=== PATIENT | female | born 1975 | race American Indian/Alaskan Native ===

== ENCOUNTER 2017-11-15 16:33 | Emergency (ER) | payer SELFPAY ==
[2017-11-15 16:41] VITALS: BP 141/84
[2017-11-15] MEDS ORDERED: NORCO 5/325 PO ONE (19:21)
--- NOTE | 2017-11-15 19:25 | Emergency Department Report ---
ED Upper Extremity Inj HPI - General Chief Complaint: Extremity Injury, Upper Stated Complaint: RIGHT WRIST PAIN Time Seen by Provider: 11/15/17 19:17 Source: patient Mode of arrival: Ambulatory Limitations: No Limitations - History of Present Illness Initial Comments: Patient's 42-year-old -[place] female who presents for right wrist pain 3 days so she felt pain after lifting heavy boxes states he felt a pop now with pain swelling to right wrist pain described as 10/18/2017 exacerbated by movement there is numbness no tingling or paralysis Complaint: Injury to:: right, wrist Onset/Timin -: days(s) Other Extremity Injury: Wrist: Right Other Injuries: none Place: work Severity scale (0 -10): 4 Improves With: none Worsens With: movement of extremity Context: other (lifting ) Associated Symptoms: denies: weakness, numbness, neck pain - Related Data Home Medications Medication Instructions Recorded Confirmed Last Taken Hydrochlorothiazide [HCTZ] 12.5 mg PO QDAY 07/27/15 07/27/15 Unknown Insulin NPH/Regular [NovoLIN 70/30] 40 unit SQ QAM 07/27/15 07/31/15 Unknown Lisinopril [Zestril TAB] 40 mg PO QDAY 07/27/15 07/27/15 Unknown metFORMIN [Glucophage] 500 mg PO BID 07/27/15 07/27/15 Unknown Insulin NPH/Regular [NovoLIN 70/30] 30 unit SQ DAILY 07/31/15 07/31/15 Unknown Previous Rx's Medication Instructions Recorded Last Taken Type Aspirin EC [Aspirin Enteric Coated 325 mg PO QDAY #30 tablet 08/02/15 Unknown Rx TAB] Metoprolol [Lopressor TAB] 25 mg PO BID #60 tablet 08/02/15 Unknown Rx Prasugrel [Effient] 10 mg PO QDAY #30 tablet 08/02/15 Unknown Rx Simvastatin [Zocor TAB] 40 mg PO QHS #30 tablet 08/02/15 Unknown Rx Cyclobenzaprine [Flexeril] 10 mg PO BID PRN #20 tablet 11/15/17 Unknown Rx Menthol/Camphor [[place] 1 applic TP BID PRN #1 tube 11/15/17 Unknown Rx Ointment] Naproxen [Naprosyn] 500 mg PO BID PRN #30 tablet 06/07/18 Unknown Rx Allergies Allergy/AdvReac Type Severity Reaction Status Date / Time No Known Allergies Allergy Unverified 07/27/15 11:39 ED Review of Systems ROS: Stated complaint: RIGHT WRIST PAIN Other details as noted in HPI Constitutional: denies: chills, fever Eyes: denies: eye pain, eye discharge, vision change ENT: denies: ear pain, throat pain Respiratory: denies: cough, shortness of breath, wheezing Cardiovascular: denies: chest pain, palpitations Endocrine: no symptoms reported Gastrointestinal: denies: abdominal pain, nausea, diarrhea Genitourinary: denies: urgency, dysuria, discharge Musculoskeletal: joint swelling, myalgia Skin: denies: rash, lesions Neurological: denies: headache, weakness, paresthesias Psychiatric: as per HPI Hematological/Lymphatic: denies: easy bleeding, easy bruising ED Past Medical Hx - Past Medical History Previous Medical History?: Yes Hx Hypertension: Yes Hx Heart Attack/AMI: Yes (x 2) Hx Congestive Heart Failure: No Hx Diabetes: Yes Hx Asthma: No Hx COPD: No Additional medical history: high cholestrol - Surgical History Past Surgical History?: Yes Hx Coronary Stent: Yes (x 2) - Social History Smoking Status: Never Smoker Substance Use Type: None - Medications Home Medications: Home Medications Medication Instructions Recorded Confirmed Last Taken Type Hydrochlorothiazide [HCTZ] 12.5 mg PO QDAY 07/27/15 07/27/15 Unknown History Insulin NPH/Regular [NovoLIN 70/30] 40 unit SQ QAM 07/27/15 07/31/15 Unknown History Lisinopril [Zestril TAB] 40 mg PO QDAY 07/27/15 07/27/15 Unknown History metFORMIN [Glucophage] 500 mg PO BID 07/27/15 07/27/15 Unknown History Insulin NPH/Regular [NovoLIN 70/30] 30 unit SQ DAILY 07/31/15 07/31/15 Unknown History Aspirin EC [Aspirin Enteric Coated 325 mg PO QDAY #30 tablet 08/02/15 Unknown Rx TAB] Metoprolol [Lopressor TAB] 25 mg PO BID #60 tablet 08/02/15 Unknown Rx Prasugrel [Effient] 10 mg PO QDAY #30 tablet 08/02/15 Unknown Rx Simvastatin [Zocor TAB] 40 mg PO QHS #30 tablet 08/02/15 Unknown Rx Cyclobenzaprine [Flexeril] 10 mg PO BID PRN #20 tablet 11/15/17 Unknown Rx Menthol/Camphor [[place] 1 applic TP BID PRN #1 tube 11/15/17 Unknown Rx Ointment] Naproxen [Naprosyn] 500 mg PO BID PRN #30 tablet 11/15/17 Unknown Rx ED Physical Exam - General Limitations: No Limitations General appearance: alert, in no apparent distress - Head Head exam: Present: atraumatic, normocephalic - Eye Eye exam: Present: normal appearance - ENT ENT exam: Present: mucous membranes moist - Neck Neck exam: Present: normal inspection - Respiratory Respiratory exam: Present: normal lung sounds bilaterally. Absent: respiratory distress - Cardiovascular Cardiovascular Exam: Present: regular rate, normal rhythm. Absent: systolic murmur, diastolic murmur, rubs, gallop - GI/Abdominal GI/Abdominal exam: Present: soft, normal bowel sounds - Rectal Rectal exam: Present: deferred - Extremities Exam Extremities exam: Present: tenderness (right dorsal right wrist pain swelling ) , normal capillary refill, joint swelling - Expanded Upper Extremity Exam Right Hand Wrist exam: Present: tenderness (right lateral wrist mild swelling no snuff box tenderness flexion and extension restricted by pain ), swelling. Absent: abrasion, laceration, ecchymosis, deformity, crepidus, dislocation, erythema, amputation, nail avulsion, subungual hematoma Neuro motor exam: Present: wrist extension intact, thumb opposition intact, thumb IP flexion intact, thumb adduction intact, fingers 2-5 abduction intact Neurosensory exam: Present: 2-point discrimination, radial nerve intact, ulnar nerve intact, median nerve intact Vascular: Present: normal capillary refill, radial pulse, brachial pulse, ulnar pulse. Absent: vascular compromise, Pallo, pulse deficit radial art, pulse deficit ulnar art, pulse deficit brachial art - Back Exam Back exam: Present: normal inspection - Neurological Exam Neurological exam: Present: alert, oriented X3, CN II-XII intact, normal gait, reflexes normal. Absent: motor sensory deficit - Psychiatric Psychiatric exam: Present: normal affect, normal mood - Skin Skin exam: Present: warm, dry, intact, normal color. Absent: rash ED Course Vital Signs 11/15/17 11/15/17 16:36 19:28 Temperature 98.4 F Pulse Rate 80 Respiratory 16 18 Rate Blood Pressure 141/84 O2 Sat by Pulse 97 Oximetry ED Medical Decision Making - Radiology Data Radiology results: report reviewed, image reviewed no fracture no soft tissue abnormality - Medical Decision Making Wrist x-ray results no fracture no soft tissue abnormality. Plan right wrist Velcro splint and says muscle relaxants wrist exercises and follow with PCP in 2-3 days return to ED if symptoms worsen patient will be DC'd home in stable condition at this time patient verbalizes understanding and agreement with discharge plan. Critical care attestation.: If time is entered above; I have spent that time in minutes in the direct care of this critically ill patient, excluding procedure time. ED Disposition Clinical Impression: Wrist strain Qualifiers: Encounter type: initial encounter Laterality: right Qualified Code(s): S66.911A - Strain of unspecified muscle, fascia and tendon at wrist and hand level, right hand, initial encounter Disposition: DC-01 TO HOME OR SELFCARE Is pt being admited?: No Does the pt Need Aspirin: No Condition: Fair Instructions: Wrist Injury (ED) Prescriptions: Cyclobenzaprine [Flexeril] 10 mg PO BID PRN #20 tablet PRN Reason: Muscle Spasm Menthol/Camphor [[place] Ointment] 1 applic TP BID PRN #1 tube PRN Reason: pain spasm Naproxen [Naprosyn] 500 mg PO BID PRN #30 tablet PRN Reason: Pain Referrals: [facility] [Outside] - 3-5 Days Forms: Work/School Release Form(ED) Time of Disposition: 20:37
--- NOTE | 2017-11-15 20:53 | XRay Report ---
FINAL REPORT PROCEDURE: XR WRIST BILAT 3+V TECHNIQUE: Bilateral wrists, 4 views HISTORY: wrist pain swelling COMPARISON: No prior studies are available for comparison. FINDINGS: No acute fracture or dislocation is seen bilaterally. No focal osseous lesions. No radiopaque foreign body. No significant degenerative changes. No cortical erosions. IMPRESSION: No osseous abnormality is seen bilaterally
== END 2017-11-15 20:58 | disposition home or self-care (01) ==
LOC: ED 16:33
DX: S66.911A Strain of unspecified muscle, fascia and tendon at wrist and hand level, right hand, initial encounter (principal); I10 Essential (primary) hypertension; E11.9 Type 2 diabetes mellitus without complications; E78.5 Hyperlipidemia, unspecified; X50.9XXA Other and unspecified overexertion or strenuous movements or postures, initial encounter; Y93.89 Activity, other specified; Y92.89 Other specified places as the place of occurrence of the external cause; Y99.8 Other external cause status

== ENCOUNTER 2017-12-10 21:13 | Emergency (ER) | payer SELFPAY ==
[2017-12-10 21:39] VITALS: BP 156/81
[2017-12-11] MEDS ORDERED: ULTRAM PO ONE
--- NOTE | 2017-12-11 00:09 | Emergency Department Report ---
ED ENT HPI - General Chief complaint: Dental/Oral Stated complaint: TOOTHACHE Time Seen by Provider: 12/10/17 23:59 Source: patient Mode of arrival: Ambulatory Limitations: No Limitations - History of Present Illness Initial comments: 42-year-old -[place] female with a past medical history of diabetes comes in complaining that she has a tooth a 8 out of 10 with an abscess for 2 weeks. Patient reports that she has a bad tooth on her right lower jaw. She denies any fever or chills or nausea no vomiting. She currently takes Novolin 70/30 45 units a.m. and 30 units p.m. complaint: tooth pain -: week(s) (2) Location: tooth # (32) Severity: severe Severity scale (0 -10): 8 Quality: burning, aching Consistency: constant Improves with: none Worsens with: none Context- Dental: history of dental caries - Related Data Home Medications Medication Instructions Recorded Confirmed Last Taken Hydrochlorothiazide [HCTZ] 12.5 mg PO QDAY 07/27/15 07/27/15 Unknown Insulin NPH/Regular [NovoLIN 70/30] 40 unit SQ QAM 07/27/15 07/31/15 Unknown Lisinopril [Zestril TAB] 40 mg PO QDAY 07/27/15 07/27/15 Unknown metFORMIN [Glucophage] 500 mg PO BID 07/27/15 07/27/15 Unknown Insulin NPH/Regular [NovoLIN 70/30] 30 unit SQ DAILY 07/31/15 07/31/15 Unknown Previous Rx's Medication Instructions Recorded Last Taken Type Aspirin EC [Aspirin Enteric Coated 325 mg PO QDAY #30 tablet 08/02/15 Unknown Rx TAB] Metoprolol [Lopressor TAB] 25 mg PO BID #60 tablet 08/02/15 Unknown Rx Prasugrel [Effient] 10 mg PO QDAY #30 tablet 08/02/15 Unknown Rx Simvastatin [Zocor TAB] 40 mg PO QHS #30 tablet 08/02/15 Unknown Rx Acetaminophen [Tylenol Arthritis] 650 mg PO QID PRN #60 tablet.er 11/15/17 Unknown Rx Cyclobenzaprine [Flexeril] 10 mg PO BID PRN #20 tablet 11/15/17 Unknown Rx Menthol/Camphor [[place] 1 applic TP BID PRN #1 tube 11/15/17 Unknown Rx Ointment] Naproxen [Naprosyn] 500 mg PO BID PRN #30 tablet 11/15/17 Unknown Rx Penicillin Vk [Veetids TAB] 250 mg PO QID #40 tablet 12/11/17 Unknown Rx traMADol [Ultram 50 MG tab] 50 mg PO Q6HR PRN #15 tablet 12/11/17 Unknown Rx Allergies Allergy/AdvReac Type Severity Reaction Status Date / Time ibuprofen Allergy Unknown Verified 12/10/17 21:34 ED Dental HPI - General Chief complaint: Dental/Oral Stated complaint: TOOTHACHE Time Seen by Provider: 12/10/17 23:59 Source: patient Mode of arrival: Ambulatory Limitations: No Limitations - Related Data Home Medications Medication Instructions Recorded Confirmed Last Taken Hydrochlorothiazide [HCTZ] 12.5 mg PO QDAY 07/27/15 07/27/15 Unknown Insulin NPH/Regular [NovoLIN 70/30] 40 unit SQ QAM 07/27/15 07/31/15 Unknown Lisinopril [Zestril TAB] 40 mg PO QDAY 07/27/15 07/27/15 Unknown metFORMIN [Glucophage] 500 mg PO BID 07/27/15 07/27/15 Unknown Insulin NPH/Regular [NovoLIN 70/30] 30 unit SQ DAILY 07/31/15 07/31/15 Unknown Previous Rx's Medication Instructions Recorded Last Taken Type Aspirin EC [Aspirin Enteric Coated 325 mg PO QDAY #30 tablet 08/02/15 Unknown Rx TAB] Metoprolol [Lopressor TAB] 25 mg PO BID #60 tablet 08/02/15 Unknown Rx Prasugrel [Effient] 10 mg PO QDAY #30 tablet 08/02/15 Unknown Rx Simvastatin [Zocor TAB] 40 mg PO QHS #30 tablet 08/02/15 Unknown Rx Acetaminophen [Tylenol Arthritis] 650 mg PO QID PRN #60 tablet.er 11/15/17 Unknown Rx Cyclobenzaprine [Flexeril] 10 mg PO BID PRN #20 tablet 11/15/17 Unknown Rx Menthol/Camphor [[place] 1 applic TP BID PRN #1 tube 11/15/17 Unknown Rx Ointment] Naproxen [Naprosyn] 500 mg PO BID PRN #30 tablet 11/15/17 Unknown Rx Penicillin Vk [Veetids TAB] 250 mg PO QID #40 tablet 12/11/17 Unknown Rx traMADol [Ultram 50 MG tab] 50 mg PO Q6HR PRN #15 tablet 12/11/17 Unknown Rx Allergies Allergy/AdvReac Type Severity Reaction Status Date / Time ibuprofen Allergy Unknown Verified 12/10/17 21:34 ED Review of Systems ROS: Stated complaint: TOOTHACHE Other details as noted in HPI Comment: All other systems reviewed and negative ENT: dental pain ED Past Medical Hx - Past Medical History Hx Hypertension: Yes Hx Heart Attack/AMI: Yes (x 2) Hx Congestive Heart Failure: No Hx Diabetes: Yes Hx Asthma: No Hx COPD: No Additional medical history: high cholestrol - Surgical History Hx Coronary Stent: Yes (x 2) - Social History Smoking Status: Never Smoker Substance Use Type: None - Medications Home Medications: Home Medications Medication Instructions Recorded Confirmed Last Taken Type Hydrochlorothiazide [HCTZ] 12.5 mg PO QDAY 07/27/15 07/27/15 Unknown History Insulin NPH/Regular [NovoLIN 70/30] 40 unit SQ QAM 07/27/15 07/31/15 Unknown History Lisinopril [Zestril TAB] 40 mg PO QDAY 07/27/15 07/27/15 Unknown History metFORMIN [Glucophage] 500 mg PO BID 07/27/15 07/27/15 Unknown History Insulin NPH/Regular [NovoLIN 70/30] 30 unit SQ DAILY 07/31/15 07/31/15 Unknown History Aspirin EC [Aspirin Enteric Coated 325 mg PO QDAY #30 tablet 08/02/15 Unknown Rx TAB] Metoprolol [Lopressor TAB] 25 mg PO BID #60 tablet 08/02/15 Unknown Rx Prasugrel [Effient] 10 mg PO QDAY #30 tablet 08/02/15 Unknown Rx Simvastatin [Zocor TAB] 40 mg PO QHS #30 tablet 08/02/15 Unknown Rx Acetaminophen [Tylenol Arthritis] 650 mg PO QID PRN #60 tablet.er 11/15/17 Unknown Rx Cyclobenzaprine [Flexeril] 10 mg PO BID PRN #20 tablet 11/15/17 Unknown Rx Menthol/Camphor [[place] 1 applic TP BID PRN #1 tube 11/15/17 Unknown Rx Ointment] Naproxen [Naprosyn] 500 mg PO BID PRN #30 tablet 11/15/17 Unknown Rx Penicillin Vk [Veetids TAB] 250 mg PO QID #40 tablet 12/11/17 Unknown Rx traMADol [Ultram 50 MG tab] 50 mg PO Q6HR PRN #15 tablet 12/11/17 Unknown Rx ED Physical Exam - General Limitations: No Limitations General appearance: alert, in no apparent distress - Head Head exam: Present: atraumatic, normocephalic - Eye Eye exam: Present: EOMI - ENT ENT exam: Present: mucous membranes moist - Expanded ENT Exam Expanded TM/Canal exam: Effusion: Right TM, Loss of Landmarks: Right TM Teeth exam: Present: dental caries, dental tenderness # (32), gingival enlargement - Neck Neck exam: Present: tenderness (right lower jaw), full ROM. Absent: lymphadenopathy - Respiratory Respiratory exam: Present: normal lung sounds bilaterally. Absent: respiratory distress - Cardiovascular Cardiovascular Exam: Present: regular rate, normal rhythm. Absent: systolic murmur, diastolic murmur, rubs, gallop ED Course Vital Signs 12/10/17 21:35 Temperature 98.4 F Pulse Rate 85 Respiratory 18 Rate Blood Pressure 156/81 O2 Sat by Pulse 99 Oximetry Critical care attestation.: If time is entered above; I have spent that time in minutes in the direct care of this critically ill patient, excluding procedure time. ED Disposition Clinical Impression: Dental abscess Disposition: - TO HOME OR SELFCARE Is pt being admited?: No Does the pt Need Aspirin: No Condition: Stable Instructions: Dental Abscess (ED), Dental Caries (ED), Toothache (ED) Additional Instructions: Please complete antibiotics as prescribed. Please take pain medication as needed. It is very important for him to follow up with his dentist. Prescriptions: Penicillin Vk [Veetids TAB] 250 mg PO QID #40 tablet traMADol [Ultram 50 MG tab] 50 mg PO Q6HR PRN #15 tablet PRN Reason: Pain , Severe (7-10) Referrals: PRIMARY CARE, [Primary Care Provider] - 3-5 Days [facility] [Provider Group] - 3-5 Days [facility] [Outside] - 3-5 Days [facility] [Outside] - 3-5 Days Forms: Work/School Release Form(ED)
== END 2017-12-11 00:25 | disposition home or self-care (01) ==
LOC: ED 21:13
DX: K04.7 Periapical abscess without sinus (principal); I10 Essential (primary) hypertension; I25.2 Old myocardial infarction; E11.9 Type 2 diabetes mellitus without complications; E78.00 Pure hypercholesterolemia, unspecified; Z88.6 Allergy status to analgesic agent; Z95.1 Presence of aortocoronary bypass graft; Z79.4 Long term (current) use of insulin; Z79.82 Long term (current) use of aspirin
CPT/HCPCS: 99282

== ENCOUNTER 2020-06-02 21:27 | Observation (INO) | payer OTHER ==
[2020-06-02] MEDS ORDERED: ASPIRIN 325 MG TAB PO ONE (23:15)
[2020-06-03 00:51] LABS: Basophils # (Auto) 0.1 K/mm3 (0.0-0.1); Basophils % (Auto) 0.7 % (0.0-1.8); Eosinophils # (Auto) 0.1 K/mm3 (0.0-0.4); Eosinophils % (Auto) 1.9 % (0.0-4.3); Hematocrit 40.5 % (30.3-42.9); Hemoglobin 13.6 gm/dl (10.1-14.3); Lymphocytes % (Auto) 25.5 % (13.4-35.0); Mean Corpuscular HGB Conc 34 % (30-34); Mean Corpuscular Volume 95 fl (79-97); Monocytes # (Auto) 0.7 K/mm3 (0.0-0.8); Monocytes % (Auto) 8.8 % (0.0-7.3); Platelet Count 248 K/mm3 (140-440); Red Blood Count 4.29 M/mm3 (3.65-5.03); Red Cell Distribution Width 13.2 % (13.2-15.2)
[2020-06-03 01:13] LABS: Blood Urea Nitrogen 18 mg/dL (7-17); Calcium 9.5 mg/dL (8.4-10.2); Hemolysis Index 8
[2020-06-03 01:18] LABS: BUN/Creatinine Ratio 26
--- NOTE | 2020-06-03 02:08 | XRay Report ---
CHEST 1 VIEW INDICATION: Chest Pain. COMPARISON: 07/30/2015 FINDINGS: SUPPORT DEVICES: None. HEART: Within normal limits. LUNGS/PLEURA: No acute air space or interstitial disease. ADDITIONAL FINDINGS: None. IMPRESSION: 1. No acute findings. Signer Name: Osiel Martínez MD Signed: 06/03/2020 2:04 AM Workstation Name: [id number]
[2020-06-03] MEDS ORDERED: fentaNYL 100 MCG/2 ML INJ IV ONE (09:00)
[2020-06-03] MEDS ORDERED: ONDANSETRON 4 MG/2 ML INJ IV ONE (09:00)
[2020-06-03] MEDS ORDERED: NITROGLYCERIN 2% OINT 1 GM TP ONE (09:00)
--- NOTE | 2020-06-03 09:05 | Emergency Department Report ---
HPI - General Chief Complaint: Chest Pain Time Seen by Provider: 06/03/20 08:51 - HPI HPI: Room 24 The patient is a 45-year-old female present with a chief complaint of chest pain. The patient states for 1 week she has had a constant substernal/left-si ded chest pain described as sharp and throbbing in nature. Patient states her chest pain waxes and wanes and is associated with nausea/vomiting. Patient denies shortness of breath or diaphoresis with the pain. Patient admits to occasional dizziness with her pain. Patient states she has not had any of her cardiac medications for 1 week. Patient currently gives her chest pain a score of 7/10. Patient states her last cardiac catheterization occurred in 2015 when she had her second cardiac stent placed ED Past Medical Hx - Past Medical History Previous Medical History?: Yes Hx Hypertension: Yes Hx Heart Attack/AMI: Yes (x 2) Hx Diabetes: Yes Additional medical history: high cholestrol, CAD - Surgical History Past Surgical History?: Yes Hx Coronary Stent: Yes (x 2) - Family History Family history: no significant - Social History Smoking Status: Never Smoker Substance Use Type: None (Denies illicit drug use) - Medications Home Medications: Home Medications Medication Instructions Recorded Confirmed Last Taken Type Insulin NPH/Regular [NovoLIN 70/30] 40 unit SQ QAM 07/27/15 07/31/15 Unknown History hydroCHLOROthiazide [HCTZ] 12.5 mg PO QDAY 07/27/15 07/27/15 Unknown History lisinopriL [Zestril TAB] 40 mg PO QDAY 07/27/15 07/27/15 Unknown History metFORMIN [Glucophage] 500 mg PO BID 07/27/15 07/27/15 Unknown History Insulin NPH/Regular [NovoLIN 70/30] 30 unit SQ DAILY 07/31/15 07/31/15 Unknown History Aspirin EC [Ecotrin] 325 mg PO QDAY #30 tablet 08/02/15 Unknown Rx Metoprolol [Lopressor TAB] 25 mg PO BID #60 tablet 08/02/15 Unknown Rx Prasugrel [Effient] 10 mg PO QDAY #30 tablet 08/02/15 Unknown Rx Simvastatin [Zocor TAB] 40 mg PO QHS #30 tablet 08/02/15 Unknown Rx Acetaminophen [Tylenol Arthritis] 650 mg PO QID PRN #60 tablet.er 11/15/17 Unknown Rx Cyclobenzaprine [Flexeril] 10 mg PO BID PRN #20 tablet 11/15/17 Unknown Rx Menthol/Camphor [[place] 1 applic TP BID PRN #1 tube 11/15/17 Unknown Rx Ointment] Naproxen [Naprosyn] 500 mg PO BID PRN #30 tablet 11/15/17 Unknown Rx Penicillin Vk [Veetids TAB] 250 mg PO QID #40 tablet 12/11/17 Unknown Rx traMADoL [Ultram 50 MG tab] 50 mg PO Q6HR PRN #15 tablet 12/11/17 Unknown Rx ED Review of Systems ROS: Stated complaint: CHEST PAINS Other details as noted in HPI Constitutional: denies: diaphoresis, fever Eyes: denies: eye pain ENT: denies: throat pain Respiratory: denies: shortness of breath Cardiovascular: chest pain Endocrine: no symptoms reported Gastrointestinal: nausea, vomiting Genitourinary: denies: dysuria Musculoskeletal: denies: back pain Neurological: denies: headache Physical Exam - Physical Exam Vital Signs: Vital Signs 06/03/20 06/03/20 08:54 08:57 Temperature 98.7 F Pulse Rate 80 Respiratory 16 Rate Blood Pressure 140/79 [Right] O2 Sat by Pulse 98 98 Oximetry Physical Exam: GENERAL: The patient is well-developed well-nourished female lying on stretcher not appearing to be in acute distress. [] HEENT: Normocephalic. Atraumatic. Extraocular motions are intact. Patient has moist mucous membranes. NECK: Supple. Trachea midline CHEST/LUNGS: Clear to auscultation. There is no respiratory distress noted. HEART/CARDIOVASCULAR: Regular. There is no tachycardia. There is no gallop rub or murmur. ABDOMEN: Abdomen is soft, nontender. Patient has normal bowel sounds. There is no abdominal distention. SKIN: There is no rash. There is no edema. There is no diaphoresis. NEURO: The patient is awake, alert, and oriented. The patient is cooperative. The patient has normal speech MUSCULOSKELETAL: There is no evidence of acute injury. ED Course Vital Signs 06/03/20 06/03/20 08:54 08:57 Temperature 98.7 F Pulse Rate 80 Respiratory 16 Rate Blood Pressure 140/79 [Right] O2 Sat by Pulse 98 98 Oximetry ED Medical Decision Making - Lab Data Result diagrams: 06/02/20 23:54 06/02/20 23:54 Laboratory Tests 06/02/20 06/02/20 06/02/20 23:54 23:54 23:54 WBC 7.6 RBC 4.29 Hgb 13.6 Hct 40.5 MCV 95 MCH 32 MCHC 34 RDW 13.2 Plt Count 248 Lymph % (Auto) 25.5 Bee % (Auto) 8.8 H Eos % (Auto) 1.9 Baso % (Auto) 0.7 Lymph # (Auto) 2.0 Bee # (Auto) 0.7 Eos # (Auto) 0.1 Baso # (Auto) 0.1 Seg Neutrophils % 63.1 Seg Neutrophils # 4.8 Sodium 137 Potassium 3.7 Chloride 100.0 Carbon Dioxide 27 Anion Gap 14 BUN 18 H Creatinine 0.7 Estimated GFR > 60 BUN/Creatinine Ratio 26 Glucose 212 H Calcium 9.5 Troponin T < 0.010 HCG, Qual Negative 06/03/20 06/03/20 02:10 05:01 WBC RBC Hgb Hct MCV MCH MCHC RDW Plt Count Lymph % (Auto) Bee % (Auto) Eos % (Auto) Baso % (Auto) Lymph # (Auto) Bee # (Auto) Eos # (Auto) Baso # (Auto) Seg Neutrophils % Seg Neutrophils # Sodium Potassium Chloride Carbon Dioxide Anion Gap BUN Creatinine Estimated GFR BUN/Creatinine Ratio Glucose Calcium Troponin T < 0.010 < 0.010 HCG, Qual - EKG Data -: EKG Interpreted by Me EKG shows normal: sinus rhythm Rate: normal - EKG Data When compared to previous EKG there are: previous EKG unavailable Interpretation: other (No ischemic changes seen) - Radiology Data Radiology results: report reviewed (Chest x-ray), image reviewed (Chest x-ray) interpreted by me: Chest x-ray-no focal infiltrates, no pneumothorax. No foreign body seen [facility] [address] [place] [address] XRay Report Signed Patient: TREASURE HERNANDEZ MR#: [id number] : 1975 Acct:[id number] Age/Sex: 45 / F ADM Date: 06/02/20 Loc: ED Attending Dr: Ordering Physician: ED DOC, MD Date of Service: 12/23/20 Procedure(s): XR chest 1V ap Accession Number(s): [id number] cc: ED DOC, Fluoro Time In Minutes: CHEST 1 VIEW INDICATION: Chest Pain. COMPARISON: 07/30/2015 FINDINGS: SUPPORT DEVICES: None. HEART: Within normal limits. LUNGS/PLEURA: No acute air space or interstitial disease. ADDITIONAL FINDINGS: None. IMPRESSION: 1. No acute findin gs. Signer Name: Osiel Martínez MD Signed: 06/03/2020 2:04 AM Workstation Name: [id number] Transcribed By: MARISOL Dictated By: Osiel Martínez MD Electronically Authenticated By: Osiel Martínez MD Signed Date/Time: 06/03/20203 DD/ 3 TD/TT: - Differential Diagnosis ACS, pericarditis, GERD Critical care attestation.: If time is entered above; I have spent that time in minutes in the direct care of this critically ill patient, excluding procedure time. ED Disposition Clinical Impression: Chest pain Disposition: 09 OP ADMIT IP TO THIS HOSP Is pt being admited?: Yes Does the pt Need Aspirin: Yes Condition: Fair Instructions: Chest Pain (ED) Referrals: PRIMARY CARE, [Primary Care Provider] - 3-5 Days Time of Disposition: 09:05 (Hospitalist paged (Dr. Méndez)) HEART Score - HEART Score History: Moderately suspicious EKG: Non-specific Age: < 45 Risk factors: > 3 risk factors or hx of atherosclerotic disease Troponin: Troponin T < 0.010 ng/mL (0.00-0.029) 06/03/20 05:01 Troponin: < normal limit HEART Score: 4
[2020-06-03] MEDS ORDERED: ACETAMINOPHEN 325 MG TAB PO PRN ×2 (13:00→19:58)
[2020-06-03] MEDS ORDERED: ACETAMINOPHEN 325 MG TAB ONE (13:08)
[2020-06-03] MEDS ORDERED: MORPHINE 2 MG/1 ML INJ IV PRN (16:17)
[2020-06-03] MEDS ORDERED: ONDANSETRON 4 MG/2 ML INJ IV PRN (19:58)
[2020-06-03] MEDS ORDERED: oxyCODONE /ACETAMINOPHEN 5-325MG TAB PO PRN (19:58)
[2020-06-03] MEDS ORDERED: METOCLOPRAMIDE 10 MG/2 ML INJ IV PRN (19:58)
[2020-06-03] MEDS ORDERED: MORPHINE 4 MG/1 ML INJ IV PRN (19:58)
--- NOTE | 2020-06-03 19:58 | History and Physical Report ---
History of Present Illness Date of examination: 06/03/20 Date of admission: 06/03/20 09:06 Chief complaint: Chest pain History of present illness: The patient is a 45-year-old female present with a chief complaint of chest pain. The patient states for 1 week she has had a constant substernal/left- sided chest pain described as sharp and throbbing in nature. Patient states her chest pain waxes and wanes and is associated with nausea/vomiting. Patient denies shortness of breath or diaphoresis with the pain. Patient admits to occasional dizziness with her pain. Patient states she has not had any of her cardiac medications for 1 week. Patient currently gives her chest pain a score of 7/10. Patient states her last cardiac catheterization occurred in 2015 when she had her second cardiac stent placed - Past Medical History Previous Medical History?: Yes --Hypertension: Yes --Heart Attack/AMI: Yes (x 2) --Diabetes: Yes Additional medical history: high cholestrol, CAD - Surgical History Past Surgical History?: Yes --Coronary Stent: Yes (x 2) - Family History Family history: no significant - Social History Smoking Status: Never Smoker Substance Use Type: None (Denies illicit drug use) - Medications Home Medications: Home Medications Medication Instructions Recorded Confirmed Last Taken Type Insulin NPH/Regular [NovoLIN 70/30] 40 unit SQ QAM 07/27/15 07/31/15 Unknown History hydroCHLOROthiazide [HCTZ] 12.5 mg PO QDAY 07/27/15 07/27/15 Unknown History lisinopriL [Zestril TAB] 40 mg PO QDAY 07/27/15 07/27/15 Unknown History metFORMIN [Glucophage] 500 mg PO BID 07/27/15 07/27/15 Unknown History Insulin NPH/Regular [NovoLIN 70/30] 30 unit SQ DAILY 07/31/15 07/31/15 Unknown History Aspirin EC [Ecotrin] 325 mg PO QDAY #30 tablet 08/02/15 Unknown Rx Metoprolol [Lopressor TAB] 25 mg PO BID #60 tablet 08/02/15 Unknown Rx Prasugrel [Effient] 10 mg PO QDAY #30 tablet 08/02/15 Unknown Rx Simvastatin [Zocor TAB] 40 mg PO QHS #30 tablet 08/02/15 Unknown Rx Acetaminophen [Tylenol Arthritis] 650 mg PO QID PRN #60 tablet.er 11/15/17 Unknown Rx Cyclobenzaprine [Flexeril] 10 mg PO BID PRN #20 tablet 11/15/17 Unknown Rx Menthol/Camphor [[place] 1 applic TP BID PRN #1 tube 11/15/17 Unknown Rx Ointment] Naproxen [Naprosyn] 500 mg PO BID PRN #30 tablet 11/15/17 Unknown Rx Penicillin Vk [Veetids TAB] 250 mg PO QID #40 tablet 12/11/17 Unknown Rx traMADoL [Ultram 50 MG tab] 50 mg PO Q6HR PRN #15 tablet 12/11/17 Unknown Rx Review of Systems ROS: Stated complaint: CHEST PAINS Other details as noted in HPI Constitutional: denies: diaphoresis, fever Eyes: denies: eye pain ENT: denies: throat pain Respiratory: denies: shortness of breath Cardiovascular: chest pain Endocrine: no symptoms reported Gastrointestinal: nausea, vomiting Genitourinary: denies: dysuria Musculoskeletal: denies: back pain Neurological: denies: headache Medications and Allergies Allergies Allergy/AdvReac Type Severity Reaction Status Date / Time ibuprofen Allergy Unknown Verified 12/10/17 21:34 Home Medications Medication Instructions Recorded Confirmed Last Taken Type Insulin NPH/Regular [NovoLIN 70/30] 40 unit SQ QAM 07/27/15 06/03/20 1 Day Ago History ~06/02/20 hydroCHLOROthiazide [HCTZ] 25 mg PO QDAY 07/27/15 06/03/20 Unknown History lisinopriL [Zestril TAB] 40 mg PO QDAY 07/27/15 06/03/20 Unknown History Insulin NPH/Regular [NovoLIN 70/30] 25 unit SQ DAILY 07/31/15 06/03/20 1 Day Ago History ~06/02/20 Prasugrel [Effient] 10 mg PO QDAY #30 tablet 08/02/15 06/03/20 Unknown Rx Simvastatin [Zocor TAB] 40 mg PO QHS #30 tablet 08/02/15 06/03/20 1 Day Ago Rx ~06/02/20 Metoprolol 100 mg PO DAILY 06/03/20 06/03/20 06/02/20 21:00 History Active Meds: Active Medications Acetaminophen (Acetaminophen 325 Mg Tab) 650 mg PO Q4H PRN PRN Reason: Pain, Mild (1-3) Morphine Sulfate (Morphine 2 Mg/1 Ml Inj) 2 mg IV Q4H PRN PRN Reason: Pain, Moderate (4-6) Exam - Constitutional Vitals: Temp Pulse Resp BP Pulse Ox 99.0 F 81 18 134/70 97 06/03/20 16:47 06/03/20 16:47 06/03/20 16:47 06/03/20 16:47 06/03/20 16:47 General appearance: Present: no acute distress, well-nourished - EENT Eyes: Present: PERRL ENT: hearing intact, clear oral mucosa - Neck Neck: Present: supple, normal ROM - Respiratory Respiratory effort: normal Respiratory: bilateral: CTA - Cardiovascular Heart rate: 78 Rhythm: regular Heart Sounds: Present: S1 & S2. Absent: rub, click - Extremities Extremities: pulses symmetrical, No edema Peripheral Pulses: within normal limits - Abdominal General gastrointestinal: Present: soft, non-tender, non-distended, normal bowel sounds Female genitourinary: Present: normal - Integumentary Integumentary: Present: clear, warm, dry - Musculoskeletal Musculoskeletal: gait normal, strength equal bilaterally - Psychiatric Psychiatric: appropriate mood/affect, intact judgment & insight - Neurologic Neurologic: CNII-XII intact, moves all extremities - Allied Health Allied health notes reviewed: nursing, case management HEART Score - HEART Score History: Moderately suspicious EKG: Non-specific Age: < 45 Risk factors: > 3 risk factors or hx of atherosclerotic disease Troponin: Troponin T < 0.010 ng/mL (0.00-0.029) 06/03/20 05:01 Troponin: < normal limit HEART Score: 4 - Critical Actions Critical Actions: 4-6 pts:12-16.6% risk of adverse cardiac event. Should be admitted Results - Labs CBC & Chem 7: 06/02/20 23:54 06/02/20 23:54 Labs: Laboratory Last Values WBC 7.6 K/mm3 (4.5-11.0) 06/02/20 23:54 RBC 4.29 M/mm3 (3.65-5.03) 06/02/20 23:54 Hgb 13.6 gm/dl (10.1-14.3) 06/02/20 23:54 Hct 40.5 % (30.3-42.9) 06/02/20 23:54 MCV 95 fl (79-97) 06/02/20 23:54 MCH 32 pg (28-32) 06/02/20 23:54 MCHC 34 % (30-34) 06/02/20 23:54 RDW 13.2 % (13.2-15.2) 06/02/20 23:54 Plt Count 248 K/mm3 (140-440) 06/02/20 23:54 Lymph % (Auto) 25.5 % (13.4-35.0) 06/02/20 23:54 [place] % (Auto) 8.8 % (0.0-7.3) H 06/02/20 23:54 Eos % (Auto) 1.9 % (0.0-4.3) 06/02/20 23:54 Baso % (Auto) 0.7 % (0.0-1.8) 06/02/20 23:54 Lymph # (Auto) 2.0 K/mm3 (1.2-5.4) 06/02/20 23:54 [place] # (Auto) 0.7 K/mm3 (0.0-0.8) 06/02/20 23:54 Eos # (Auto) 0.1 K/mm3 (0.0-0.4) 06/02/20 23:54 Baso # (Auto) 0.1 K/mm3 (0.0-0.1) 06/02/20 23:54 Seg Neutrophils % 63.1 % (40.0-70.0) 06/02/20 23:54 Seg Neutrophils # 4.8 K/mm3 (1.8-7.7) 06/02/20 23:54 Sodium 137 mmol/L (137-145) 06/02/20 23:54 Potassium 3.7 mmol/L (3.6-5.0) 06/02/20 23:54 Chloride 100.0 mmol/L (98-107) 06/02/20 23:54 Carbon Dioxide 27 mmol/L (22-30) 06/02/20 23:54 Anion Gap 14 mmol/L 06/02/20 23:54 BUN 18 mg/dL (7-17) H 06/02/20 23:54 Creatinine 0.7 mg/dL (0.6-1.2) 06/02/20 23:54 Estimated GFR > 60 ml/min 06/02/20 23:54 BUN/Creatinine Ratio 26 % 06/02/20 23:54 Glucose 212 mg/dL (65-100) H 06/02/20 23:54 POC Glucose 349 mg/dL (70-105) H 06/03/20 16:51 Calcium 9.5 mg/dL (8.4-10.2) 06/02/20 23:54 Troponin T < 0.010 ng/mL (0.00-0.029) 06/03/20 05:01 HCG, Qual Negative (Negative) 06/02/20 23:54 Bravo/IV: IV Catheter Type [Right INT / Saline Lock Femoral] Assessment and Plan Advance Directives: Yes (Full code) VTE prophylaxis?: Chemical Plan of care discussed with patient/family: Yes - Patient Problems (1) Acute coronary syndrome Current Visit: Yes Status: Acute Plan to address problem: Serial troponins and Lexiscan in am Patient on Effient for CAD/GA (2) IDDM (insulin dependent diabetes mellitus) Current Visit: Yes Status: Chronic Plan to address problem: COntinue home insulin and civerage Check A1c (3) HTN (hypertension) Current Visit: Yes Status: Chronic Qualifiers: Hypertension type: essential hypertension Qualified Code(s): I10 - Es sential (primary) hypertension Plan to address problem: Cont antihypertensives (4) CAD (coronary artery disease) Current Visit: Yes Status: Chronic Plan to address problem: Cont Effient (5) DVT prophylaxis Current Visit: Yes Status: Acute Plan to address problem: On Effient and GI ptophylaxis (6) Discharge planning issues Current Visit: Yes Status: Acute Plan to address problem: Patient may be discharged tomorrow if Lexiscan is not available because of Holiday schedule and 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 First 2 troponins are normal
[2020-06-03] MEDS ORDERED: PRASUGREL 10 MG TAB PO SCH (21:00)
[2020-06-03] MEDS: hydroCHLOROthiazide 25 MG TAB PO SCH (21:00)
[2020-06-03] MEDS ORDERED: ASPIRIN 81 MG TAB CHEW PO SCH (22:00)
[2020-06-03] MEDS ORDERED: PRAVASTATIN 80 MG TAB PO SCH (22:00)
[2020-06-03] MEDS ORDERED: INSULIN LISPRO 100 UNIT/ML VIAL 3 mL SUB-Q SCH (22:00)
[2020-06-03] MEDS: LISINOPRIL 40 MG TAB PO SCH (22:00)
[2020-06-04] MEDS: INSULIN NPH/REGULAR 70/30 INJ SUB-Q SCH ×2 (05:05→09:56)
[2020-06-04] MEDS: METOPROLOL TARTRATE 100 MG TAB PO SCH ×2 (05:06→09:54)
[2020-06-04 08:35] VITALS: BP 124/77
[2020-06-04] MEDS: hydroCHLOROthiazide 25 MG TAB PO SCH (09:54)
[2020-06-04] MEDS: LISINOPRIL 40 MG TAB PO SCH (09:54)
[2020-06-04 11:06] LABS: Basophils % (Auto) 0.6 % (0.0-1.8); Eosinophils # (Auto) 0.1 K/mm3 (0.0-0.4); Eosinophils % (Auto) 2.3 % (0.0-4.3); Hemoglobin 13.3 gm/dl (10.1-14.3); Lymphocytes # (Auto) 1.3 K/mm3 (1.2-5.4); Mean Corpuscular HGB Conc 33 % (30-34); Mean Corpuscular Volume 94 fl (79-97); Monocytes # (Auto) 0.6 K/mm3 (0.0-0.8); Monocytes % (Auto) 10.8 % (0.0-7.3); Platelet Count 233 K/mm3 (140-440); Red Blood Count 4.26 M/mm3 (3.65-5.03)
[2020-06-04 11:32] LABS: Alanine Aminotransferase 10 units/L (7-56); Albumin 3.4 g/dL (3.9-5); Blood Urea Nitrogen 19 mg/dL (7-17); Calcium 8.8 mg/dL (8.4-10.2); Hemolysis Index 5
[2020-06-04 11:37] LABS: BUN/Creatinine Ratio 32
--- NOTE | 2020-06-04 11:53 | Discharge Summary ---
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
== END 2020-06-04 14:01 | disposition home or self-care (01) ==
LOC: ED 21:27 → 4A 06-03 09:06
PROVIDERS: ADMIT Internal Medicine; ATTEND Internal Medicine
DX: I24.9 Acute ischemic heart disease, unspecified (principal); I10 Essential (primary) hypertension; I25.10 Atherosclerotic heart disease of native coronary artery without angina pectoris; E11.9 Type 2 diabetes mellitus without complications; E78.00 Pure hypercholesterolemia, unspecified; Z95.1 Presence of aortocoronary bypass graft; Z79.4 Long term (current) use of insulin; Z79.82 Long term (current) use of aspirin; Z79.899 Other long term (current) drug therapy
CPT/HCPCS: 36415; 71045; 80048; 80053; 82962; 83036; 84484; 84703; 85025; 93005; 96372; 96374; 96375; 99285; A9270; G0378; J1815; J2405; J3010

== ENCOUNTER 2020-08-28 17:54 | Emergency (ER) | payer OTHER ==
[2020-08-28 18:10] VITALS: BP 154/97
--- NOTE | 2020-08-28 19:30 | Emergency Department Report ---
ED ENT HPI - General Chief complaint: Dental/Oral Stated complaint: TOOTH ABSCESS/DIABETIC PATIENT Time Seen by Provider: 08/28/20 19:25 Source: patient Mode of arrival: Ambulatory Limitations: No Limitations - History of Present Illness Initial comments: Patient is a 45-year-old female presents emergency room complaints of a possible dental abscess that began 2 weeks ago. She states that she has left lower and left upper dental pain. She states that she is also noticed some swelling surrounding the gums. She denies any fever, nausea, vomiting, diarrhea, facial swelling, difficulty swallowing, difficulty breathing. She has a past medical history of CAD, DM, HTN, HLD. She denies a true allergy to ibuprofen. - Related Data Home Medications Medication Instructions Recorded Confirmed Last Taken Insulin NPH/Regular [NovoLIN 70/30] 40 unit SQ QAM 07/27/15 06/03/20 1 Day Ago ~06/02/20 Metoprolol 100 mg PO DAILY 06/03/20 06/03/20 06/02/20 21:00 Previous Rx's Medication Instructions Recorded Last Taken Type Acetaminophen [Acetaminophen TAB] 650 mg PO Q4H PRN tablet 06/04/20 Unknown Rx Aspirin [Aspirin BABY CHEW TAB] 81 mg PO QDAY tab.chew 06/04/20 Unknown Rx Insulin Lispro [Humalog] 0 unit SUB-Q ACHS vial 06/04/20 Unknown Rx Insulin NPH/Regular [NovoLIN 70/30] 25 unit SUB-Q BID units 06/04/20 Unknown Rx Metoprolol [Lopressor TAB] 100 mg PO QDAY #30 tablet 06/04/20 Unknown Rx Pantoprazole [Protonix TAB] 20 mg PO QDAY #30 tablet.dr 06/04/20 Unknown Rx Prasugrel [Effient] 10 mg PO QDAY #30 tablet 06/04/20 Unknown Rx Pravastatin [Pravachol] 80 mg PO QHS #30 tablet 06/04/20 Unknown Rx lisinopriL [Zestril TAB] 40 mg PO QDAY #30 06/04/20 Unknown Rx oxyCODONE /ACETAMINOPHEN [Percocet 1 tab PO Q6H PRN tablet 06/04/20 Unknown Rx 5/325 mg] Acetaminophen/Codeine [Tylenol 1 tab PO Q6H PRN #7 tab 08/28/20 Unknown Rx /Codeine # 3 tab] Chlorhexidine Mouthwash [Peridex] 15 ml MM BID #1 bottle 08/28/20 Unknown Rx Penicillin Vk [Veetids TAB] 500 mg PO QID 7 Days #56 tablet 08/28/20 Unknown Rx Allergies Allergy/AdvReac Type Severity Reaction Status Date / Time ibuprofen Allergy Unknown Verified 12/10/17 21:34 ED Dental HPI - General Chief complaint: Dental/Oral Stated complaint: TOOTH ABSCESS/DIABETIC PATIENT Time Seen by Provider: 08/28/20 19:25 Source: patient Mode of arrival: Ambulatory Limitations: No Limitations - Related Data Home Medications Medication Instructions Recorded Confirmed Last Taken Insulin NPH/Regular [NovoLIN 70/30] 40 unit SQ QAM 07/27/15 06/03/20 1 Day Ago ~06/02/20 Metoprolol 100 mg PO DAILY 06/03/20 06/03/20 06/02/20 21:00 Previous Rx's Medication Instructions Recorded Last Taken Type Acetaminophen [Acetaminophen TAB] 650 mg PO Q4H PRN tablet 06/04/20 Unknown Rx Aspirin [Aspirin BABY CHEW TAB] 81 mg PO QDAY tab.chew 06/04/20 Unknown Rx Insulin Lispro [Humalog] 0 unit SUB-Q ACHS vial 06/04/20 Unknown Rx Insulin NPH/Regular [NovoLIN 70/30] 25 unit SUB-Q BID units 06/04/20 Unknown Rx Metoprolol [Lopressor TAB] 100 mg PO QDAY #30 tablet 06/04/20 Unknown Rx Pantoprazole [Protonix TAB] 20 mg PO QDAY #30 tablet.dr 06/04/20 Unknown Rx Prasugrel [Effient] 10 mg PO QDAY #30 tablet 06/04/20 Unknown Rx Pravastatin [Pravachol] 80 mg PO QHS #30 tablet 06/04/20 Unknown Rx lisinopriL [Zestril TAB] 40 mg PO QDAY #30 06/04/20 Unknown Rx oxyCODONE /ACETAMINOPHEN [Percocet 1 tab PO Q6H PRN tablet 06/04/20 Unknown Rx 5/325 mg] Acetaminophen/Codeine [Tylenol 1 tab PO Q6H PRN #7 tab 08/28/20 Unknown Rx /Codeine # 3 tab] Chlorhexidine Mouthwash [Peridex] 15 ml MM BID #1 bottle 08/28/20 Unknown Rx Penicillin Vk [Veetids TAB] 500 mg PO QID 7 Days #56 tablet 08/28/20 Unknown Rx Allergies Allergy/AdvReac Type Severity Reaction Status Date / Time ibuprofen Allergy Unknown Verified 12/10/17 21:34 ED Review of Systems ROS: Stated complaint: TOOTH ABSCESS/DIABETIC PATIENT Other details as noted in HPI Comment: All other systems reviewed and negative ED Past Medical Hx - Past Medical History Previous Medical History?: Yes Hx Hypertension: Yes Hx Heart Attack/AMI: Yes (with stents) Hx Diabetes: Yes Additional medical history: high cholestrol, CAD - Surgical History Past Surgical History?: Yes Hx Coronary Stent: Yes (x 2) - Social History Smoking Status: Never Smoker Substance Use Type: None - Medications Home Medications: Home Medications Medication Instructions Recorded Confirmed Last Taken Type Insulin NPH/Regular [NovoLIN 70/30] 40 unit SQ QAM 07/27/15 06/03/20 1 Day Ago History ~06/02/20 Metoprolol 100 mg PO DAILY 06/03/20 06/03/20 06/02/20 21:00 History Acetaminophen [Acetaminophen TAB] 650 mg PO Q4H PRN tablet 06/04/20 Unknown Rx Aspirin [Aspirin BABY CHEW TAB] 81 mg PO QDAY tab.chew 06/04/20 Unknown Rx Insulin Lispro [Humalog] 0 unit SUB-Q ACHS vial 06/04/20 Unknown Rx Insulin NPH/Regular [NovoLIN 70/30] 25 unit SUB-Q BID units 06/04/20 Unknown Rx Metoprolol [Lopressor TAB] 100 mg PO QDAY #30 tablet 06/04/20 Unknown Rx Pantoprazole [Protonix TAB] 20 mg PO QDAY #30 tablet.dr 06/04/20 Unknown Rx Prasugrel [Effient] 10 mg PO QDAY #30 tablet 06/04/20 Unknown Rx Pravastatin [Pravachol] 80 mg PO QHS #30 tablet 06/04/20 Unknown Rx lisinopriL [Zestril TAB] 40 mg PO QDAY #30 06/04/20 Unknown Rx oxyCODONE /ACETAMINOPHEN [Percocet 1 tab PO Q6H PRN tablet 06/04/20 Unknown Rx 5/325 mg] Acetaminophen/Codeine [Tylenol 1 tab PO Q6H PRN #7 tab 08/28/20 Unknown Rx /Codeine # 3 tab] Chlorhexidine Mouthwash [Peridex] 15 ml MM BID #1 bottle 08/28/20 Unknown Rx Penicillin Vk [Veetids TAB] 500 mg PO QID 7 Days #56 tablet 08/28/20 Unknown Rx ED Physical Exam - General Limitations: No Limitations General appearance: alert, in no apparent distress - Head Head exam: Present: atraumatic, normocephalic - Eye Eye exam: Present: normal appearance - ENT ENT exam: Present: normal orophraynx (no trismus, no tongue elevation, no muffled voice, no submandibular edema), mucous membranes moist, other (multiple dental caries and missing teeth, there is a left lower wisdom tooth that is loose, there is a left upper wisdom tooth that is impacted, there is edema and mild induration of the bilateral gumlines and inner cheek mucosa, no fluctuance, uvula is midline, no uvular edema or deviation) - Respiratory Respiratory exam: Absent: respiratory distress, accessory muscle use - Neurological Exam Neurological exam: Present: alert, oriented X3 - Psychiatric Psychiatric exam: Present: normal affect, normal mood - Skin Skin exam: Present: warm, dry, intact ED Course Vital Signs 08/28/20 18:06 Temperature 98 F Pulse Rate 79 Respiratory 16 Rate Blood Pressure 154/97 O2 Sat by Pulse 97 Oximetry ED Medical Decision Making - Medical Decision Making Patient is a 45-year-old female presents emergency room complaints of a possible dental abscess that began 2 weeks ago. She states that she has left lower and left upper dental pain. She states that she is also noticed some swelling surrounding the gums. She denies any fever, nausea, vomiting, diarrhea, facial swelling, difficulty swallowing, difficulty breathing. She has a past medical history of CAD, DM, HTN, HLD. She denies a true allergy to ibuprofen. Vitals are stable. On exam:multiple dental caries and missing teeth, there is a left lower wisdom tooth that is loose, there is a left upper wisdom tooth that is impacted, there is edema and mild induration of the bilateral gumlines and inner cheek mucosa, no fluctuance, uvula is midline, no uvular edema or deviation, no trismus, no tongue elevation, no muffled voice, no submandibular edema. Examination appears consistent with poor dentition and infected dental caries. No obvious dental abscess at this time. Patient given prescription for penicillin VK, chlorhexidine mouthwash, Tylenol with codeine. Discussed the importance of dental follow-up with patient. Advised patient Please use medication as prescribed. Please gargle with warm salt water. Follow-up with the dentist. it is very important that you follow-up. Return to emergency room for any new or worsening symptoms. Critical care attestation.: If time is entered above; I have spent that time in minutes in the direct care of this critically ill patient, excluding procedure time. ED Disposition Clinical Impression: Dental caries, Loosening of tooth, Infected dental caries Disposition: TO HOME OR SELFCARE Is pt being admited?: No Does the pt Need Aspirin: No Condition: Stable Additional Instructions: Please use medication as prescribed. Please gargle with warm salt water. Follow-up with the dentist. it is very important that you follow-up. Return to emergency room for any new or worsening symptoms. Prescriptions: Chlorhexidine Mouthwash [Peridex] 15 ml MM BID #1 bottle Acetaminophen/Codeine [Tylenol /Codeine # 3 tab] 1 tab PO Q6H PRN #7 tab PRN Reason: Pain , Severe (7-10) Penicillin Vk [Veetids TAB] 500 mg PO QID 7 Days #56 tablet Referrals: PRIMARY CARE, [Primary Care Provider] - 2-3 Days [facility] [Outside] - 2-3 Days [facility] [Outside] - 2-3 Days Time of Disposition: 19:29 Print Language: LITHUANIAN
== END 2020-08-28 19:51 | disposition home or self-care (01) ==
LOC: ED 17:54
DX: K02.9 Dental caries, unspecified (principal); K08.89 Other specified disorders of teeth and supporting structures; I10 Essential (primary) hypertension; I25.2 Old myocardial infarction; E11.9 Type 2 diabetes mellitus without complications; Z98.890 Other specified postprocedural states; Z79.4 Long term (current) use of insulin; Z79.2 Long term (current) use of antibiotics; Z79.899 Other long term (current) drug therapy; Z88.8 Allergy status to other drugs, medicaments and biological substances
CPT/HCPCS: 99282

== ENCOUNTER 2021-08-05 03:47 | Emergency (ER) | payer OTHER ==
[2021-08-05 04:09] VITALS: BP 134/83
--- NOTE | 2021-08-05 04:35 | XRay Report ---
XR ankle 3+V RT, XR foot 3+V RT INDICATION / CLINICAL INFORMATION: tripped/fell twisted Right foot, Right foot pain. COMPARISON: None available. FINDINGS: Right ankle: No acute fracture or malalignment. Ankle mortise is symmetric. There is soft tissue swel ling of the ankle, greatest laterally. Right foot: There is an acute nondisplaced oblique fracture extending through the base of the right f ifth metatarsal. No additional fracture. Lisfranc interval is preserved. No joint subluxation. IMPRESSION: Acute nondisplaced fracture of the right fifth metatarsal base. Signer Name: Eze Ramírez MD Signed: 08/05/2021 4:30 AM Workstation Name: [id number]
--- NOTE | 2021-08-05 04:41 | Emergency Department Report ---
ED Lower Extremity HPI - General Chief Complaint: Extremity Injury, Lower Stated Complaint: POSS FOOT SPRAIN Source: patient Mode of arrival: Ambulatory Limitations: No Limitations - History of Present Illness Initial Comments: Patient is a 46-year-old -Welsh female with a history of CAD s/p AL with stents, hypertension, type 2 diabetes and hyperlipidemia who presents to the ED with complaint of acute onset persistent right foot and ankle pain with swelling after she twisted her right ankle and foot accidentally 5 days ago. Patient states that the pain has been persistent worse especially weightbearing or walking. Patient denies fall, dizziness, syncope, headache, chest pain or shortness of breath, neck pain, change in vision, numbness and tingling or weakness of right leg or low back pain. MD Complaint: ankle injury (Right ankle pain), foot injury (Right foot pain and swelling) -: Sudden, days(s) (5) Injury: Ankle: Right (Right ankle pain), Foot: Right (Right foot pain and swelling) Type of Injury: inversion Place: home Severity: severe Severity scale (0 -10): 8 Improves With: nothing Worsens With: nothing, weight bearing, movement, palpation Context: walking Associated Symptoms: snap/pop sensation, swelling, able to partially bear weight. denies: numbness, tingling, unable to bear weight, ambulatory - Related Data Home Medications Medication Instructions Recorded Confirmed Last Taken Insulin NPH/Regular [NovoLIN 70/30] 40 unit SQ QAM 07/27/15 06/03/20 1 Day Ago ~06/02/20 Metoprolol 100 mg PO DAILY 06/03/20 06/03/20 06/02/20 21:00 Previous Rx's Medication Instructions Recorded Last Taken Type Acetaminophen [Acetaminophen TAB] 650 mg PO Q4H PRN tablet 06/04/20 Unknown Rx Aspirin [Aspirin BABY CHEW TAB] 81 mg PO QDAY tab.chew 06/04/20 Unknown Rx Insulin Lispro [Humalog] 0 unit SUB-Q ACHS vial 06/04/20 Unknown Rx Insulin NPH/Regular [NovoLIN 70/30] 25 unit SUB-Q BID units 06/04/20 Unknown Rx Metoprolol [Lopressor TAB] 100 mg PO QDAY #30 tablet 06/04/20 Unknown Rx Pantoprazole [Protonix TAB] 20 mg PO QDAY #30 tablet. 12/25/20 Unknown Rx Prasugrel [Effient] 10 mg PO QDAY #30 tablet 06/04/20 Unknown Rx Pravastatin [Pravachol] 80 mg PO QHS #30 tablet 06/04/20 Unknown Rx lisinopriL [Zestril TAB] 40 mg PO QDAY #30 06/04/20 Unknown Rx oxyCODONE /ACETAMINOPHEN [Percocet 1 tab PO Q6H PRN tablet 06/04/20 Unknown Rx 5/325 mg] Acetaminophen/Codeine [Tylenol 1 tab PO Q6H PRN #7 tab 08/28/20 Unknown Rx /Codeine # 3 tab] Chlorhexidine Mouthwash [Peridex] 15 ml MM BID #1 bottle 08/28/20 Unknown Rx Penicillin Vk [Veetids TAB] 500 mg PO QID 7 Days #56 tablet 08/28/20 Unknown Rx HYDROcodone/APAP 5-325 [[place] 1 each PO Q6HR PRN #12 tablet 08/05/21 Unknown Rx 5/325] Allergies Allergy/AdvReac Type Severity Reaction Status Date / Time ibuprofen Allergy Unknown Verified 08/05/21 03:55 ED Review of Systems ROS: Stated complaint: POSS FOOT SPRAIN Other details as noted in HPI Constitutional: denies: chills, fever Eyes: denies: eye pain, eye discharge, vision change ENT: denies: ear pain, throat pain Respiratory: denies: cough, shortness of breath, wheezing Cardiovascular: denies: chest pain, palpitations Endocrine: no symptoms reported Gastrointestinal: denies: abdominal pain, nausea, diarrhea Genitourinary: denies: urgency, dysuria, frequency, hematuria, discharge Musculoskeletal: joint swelling, arthralgia (Right ankle and foot pain with mild swelling). denies: back pain Skin: denies: rash, lesions Neurological: denies: headache, weakness, paresthesias Psychiatric: denies: anxiety, depression Hematological/Lymphatic: denies: easy bleeding, easy bruising ED Past Medical Hx - Past Medical History Previous Medical History?: Yes Hx Hypertension: Yes Hx Heart Attack/AMI: Yes (with stents) Hx Diabetes: Yes Additional medical history: high cholestrol, CAD. Neuroapthy - Surgical History Past Surgical History?: Yes Hx Coronary Stent: Yes (x 2) - Social History Smoking Status: Never Smoker Substance Use Type: None - Medications Home Medications: Home Medications Medication Instructions Recorded Confirmed Last Taken Type Insulin NPH/Regular [NovoLIN 70/30] 40 unit SQ QAM 07/27/15 06/03/20 1 Day Ago History ~06/02/20 Metoprolol 100 mg PO DAILY 06/03/20 06/03/20 06/02/20 21:00 History Acetaminophen [Acetaminophen TAB] 650 mg PO Q4H PRN tablet 06/04/20 Unknown Rx Aspirin [Aspirin BABY CHEW TAB] 81 mg PO QDAY tab.chew 06/04/20 Unknown Rx Insulin Lispro [Humalog] 0 unit SUB-Q ACHS vial 06/04/20 Unknown Rx Insulin NPH/Regular [NovoLIN 70/30] 25 unit SUB-Q BID units 06/04/20 Unknown Rx Metoprolol [Lopressor TAB] 100 mg PO QDAY #30 tablet 06/04/20 Unknown Rx Pantoprazole [Protonix TAB] 20 mg PO QDAY #30 tablet.dr 06/04/20 Unknown Rx Prasugrel [Effient] 10 mg PO QDAY #30 tablet 06/04/20 Unknown Rx Pravastatin [Pravachol] 80 mg PO QHS #30 tablet 06/04/20 Unknown Rx lisinopriL [Zestril TAB] 40 mg PO QDAY #30 06/04/20 Unknown Rx oxyCODONE /ACETAMINOPHEN [Percocet 1 tab PO Q6H PRN tablet 06/04/20 Unknown Rx 5/325 mg] Acetaminophen/Codeine [Tylenol 1 tab PO Q6H PRN #7 tab 08/28/20 Unknown Rx /Codeine # 3 tab] Chlorhexidine Mouthwash [Peridex] 15 ml MM BID #1 bottle 08/28/20 Unknown Rx Penicillin Vk [Veetids TAB] 500 mg PO QID 7 Days #56 tablet 08/28/20 Unknown Rx HYDROcodone/APAP 5-325 [[place] 1 each PO Q6HR PRN #12 tablet 08/05/21 Unknown Rx 5/325] ED Physical Exam - General Limitations: No Limitations General appearance: alert, in no apparent distress - Head Head exam: Present: atraumatic, normocephalic, normal inspection - Eye Eye exam: Present: normal appearance, PERRL, EOMI Pupils: Present: normal accommodation - ENT ENT exam: Present: normal exam, normal orophraynx, mucous membranes moist, TM's normal bilaterally, normal external ear exam - Neck Neck exam: Present: normal inspection, full ROM. Absent: tenderness, meningismus, lymphadenopathy, thyromegaly - Respiratory Respiratory exam: Present: normal lung sounds bilaterally. Absent: respiratory distress, wheezes, rales, rhonchi, chest wall tenderness, accessory muscle use, decreased breath sounds, prolonged expiratory - Cardiovascular Cardiovascular Exam: Present: regular rate, normal rhythm, normal heart sounds. Absent: systolic murmur, diastolic murmur, rubs, gallop - GI/Abdominal GI/Abdominal exam: Present: soft, normal bowel sounds. Absent: tenderness, guarding, rebound, hyperactive bowel sounds, hypoactive bowel sounds, organomegaly, mass - Extremities Exam Extremities exam: Present: normal inspection, tenderness (Palpable right foot and ankle tenderness with mild swelling with limited range of motion due to pain), normal capillary refill, joint swelling. Absent: full ROM (Limited range of motion due to pain of the right foot), pedal edema, calf tenderness - Back Exam Back exam: Present: normal inspection, full ROM. Absent: tenderness, CVA tenderness (R), CVA tenderness (L), muscle spasm, paraspinal tenderness, vertebral tenderness - Neurological Exam Neurological exam: Present: alert, oriented X3, CN II-XII intact, normal gait, reflexes normal - Psychiatric Psychiatric exam: Present: normal affect, normal mood - Skin Skin exam: Present: warm, dry, intact, normal color. Absent: rash ED Course Vital Signs 08/05/21 03:55 Temperature 98.5 F Pulse Rate 89 Respiratory 17 Rate Blood Pressure 134/83 [Right] O2 Sat by Pulse 100 Oximetry ED Lower Extremity MDM - Radiology Data Radiology results: report reviewed, image reviewed [facility] [address] [place] [address] XRay Report Signed Patient: TREASURE HERNANDEZ MR#: [id number] : 1975 Acct:[id number] Age/Sex: 46 / F ADM Date: 08/05/21 Loc: ED Attending Dr: Ordering Physician: ODALYS MANN MD Date of Service: 08/05/21 Procedure(s): XR foot 3+V RT Accession Number(s): [id number] cc: ODALYS MANN MD Fluoro Time In Minutes: XR ankle 3+V RT, XR foot 3+V RT INDICATION / CLINICAL INFORMATION: tripped/fell twisted Right foot, Right foot pain. COMPARISON: None available. FINDINGS: Right ankle: No acute fracture or malalignment. Ankle mortise is symmetric. There is soft tissue swelling of the ankle, greatest laterally. Right foot: There is an acute nondisplaced oblique fracture extending through the base of the right fifth metatarsal. No additional fracture. Lisfranc interval is preserved. No joint subluxation. IMPRESSION: Acute nondisplaced fracture of the right fifth metatarsal base. Signer Name: Jorge Ramírez MD Signed: 08/05/2021 4:30 AM Workstation Name: [id number] Transcribed By: JS Dictated By: JORGE RAMÍREZ MD Electronically Authenticated By: JORGE RAMÍREZ MD Signed Date/Time: 08/05/21429 DD/ 8 TD/TT: - Medical Decision Making This is a 46-year-old -Welsh female with a history of CAD s/p AL with stents, hypertension, type 2 diabetes and hyperlipidemia who presents to the ED with complaint of acute onset persistent right foot and ankle pain with swelling after she twisted her right ankle and foot accidentally 5 days ago. Patient states that the pain has been persistent worse especially weightbearing or walking. In the ED, patient is alert and oriented x3 and is not in any distress but appears to be in pain. Patient was treated for pain in the ED. Right ankle x-ray showed no acute fractures or subluxations. Right foot x-ray showed acute nondisplaced fracture of the right fifth metatarsal base. Patient right foot was splinted with postop shoe and the patient will discharge home on pain medications and given referral to the orthopedic surgeon on-call Dr. Black for follow-up and further evaluation. Patient was advised to contact Dr. Black's office first thing in the morning to schedule a follow-up appointment. Patient is advised return to the ED immediately if symptoms get worse. - Differential Diagnosis Foot fracture; ankle fracture; ankle sprain; foot sprain Critical care attestation.: If time is entered above; I have spent that time in minutes in the direct care of this critically ill patient, excluding procedure time. ED Disposition Clinical Impression: Closed nondisplaced fracture of fifth right metatarsal bone Qualifiers: Encounter type: initial encounter Qualified Code(s): S92.354A - Nondisplaced fracture of fifth metatarsal bone, right foot, initial encounter for closed fracture Severe sprain of right ankle Qualifiers: Encounter type: initial encounter Qualified Code(s): S93.401A - Sprain of unspecified ligament of right ankle, initial encounter Disposition: 01 HOME / SELF CARE / HOMELESS Is pt being admited?: No Does the pt Need Aspirin: No Condition: Stable Instructions: Metatarsal Fracture Rehab-SportsMed, Ankle Sprain, [id number], Metatarsal Fracture Additional Instructions: The right ankle x-ray showed no acute fractures or subluxation. The right foot x-ray showed a closed nondisplaced right fifth metatarsal fracture at the base. Therefore take medication with food, drink plenty of fluids and follow-up with the orthopedic surgeon Dr. Black for further evaluation. Return to the ED immediately if symptoms get worse. Prescriptions: HYDROcodone/APAP 5-325 [[place] 5/325] 1 each PO Q6HR PRN #12 tablet PRN Reason: Pain Referrals: AJITH BLACK MD [Staff Physician] - 2-3 Days Time of Disposition: 04:45 Print Language: YAKUT
== END 2021-08-05 05:49 | disposition home or self-care (01) ==
LOC: ED 03:47
DX: S92.354A Nondisplaced fracture of fifth metatarsal bone, right foot, initial encounter for closed fracture (principal); S93.401A Sprain of unspecified ligament of right ankle, initial encounter; I10 Essential (primary) hypertension; E78.00 Pure hypercholesterolemia, unspecified; E11.42 Type 2 diabetes mellitus with diabetic polyneuropathy; Z88.6 Allergy status to analgesic agent; Z79.82 Long term (current) use of aspirin; Z79.4 Long term (current) use of insulin; Z79.899 Other long term (current) drug therapy; X50.1XXA Overexertion from prolonged static or awkward postures, initial encounter; Y93.89 Activity, other specified; Y92.89 Other specified places as the place of occurrence of the external cause; Y99.8 Other external cause status
CPT/HCPCS: 99283

== ENCOUNTER 2021-09-21 21:26 | Inpatient (IN) | payer OTHER ==
[2021-09-22] MEDS ORDERED: SODIUM CHLORIDE 0.9% 1000 ML 1,000 ML IV ONE ×4 (00:15→09:30)
[2021-09-22] MEDS ORDERED: ONDANSETRON 4 MG/2 ML INJ IV ONE (00:15)
[2021-09-22] MEDS ORDERED: INSULIN REGULAR, HUMAN 100 UNITS/1 ML IV ONE (00:17)
--- NOTE | 2021-09-22 00:22 | Emergency Department Report ---
ED General Adult HPI - General Chief complaint: Hyperglycemia Stated complaint: HIGH BLOOD SUGAR Time Seen by Provider: 09/22/21 00:05 Source: patient Mode of arrival: Stretcher Limitations: No Limitations - History of Present Illness Initial comments: 46-year-old female with insulin-dependent diabetes who has been out of her insulin for the last 2 days presents emergency department complaining of nausea vomiting increased urinary frequency and weakness for the last 2 days. No fever, chills, sweats but no hemoptysis hematemesis hematochezia, no chest pain no palpitations. -: Gradual Radiation: non-radiation Quality: dull Consistency: constant Improves with: none Worsens with: none Associated Symptoms: denies other symptoms - Related Data Home Medications Medication Instructions Recorded Confirmed Last Taken Insulin NPH/Regular [NovoLIN 70/30] 40 unit SQ QAM 07/27/15 06/03/20 1 Day Ago ~06/02/20 Metoprolol 100 mg PO DAILY 06/03/20 06/03/20 06/02/20 21:00 Previous Rx's Medication Instructions Recorded Last Taken Type Acetaminophen [Acetaminophen TAB] 650 mg PO Q4H PRN tablet 06/04/20 Unknown Rx Aspirin [Aspirin BABY CHEW TAB] 81 mg PO QDAY tab.chew 06/04/20 Unknown Rx Insulin Lispro [Humalog] 0 unit SUB-Q ACHS vial 06/04/20 Unknown Rx Insulin NPH/Regular [NovoLIN 70/30] 25 unit SUB-Q BID units 06/04/20 Unknown Rx Metoprolol [Lopressor TAB] 100 mg PO QDAY #30 tablet 06/04/20 Unknown Rx Pantoprazole [Protonix TAB] 20 mg PO QDAY #30 tablet.dr 06/04/20 Unknown Rx Prasugrel [Effient] 10 mg PO QDAY #30 tablet 06/04/20 Unknown Rx Pravastatin [Pravachol] 80 mg PO QHS #30 tablet 06/04/20 Unknown Rx lisinopriL [Zestril TAB] 40 mg PO QDAY #30 06/04/20 Unknown Rx oxyCODONE /ACETAMINOPHEN [Percocet 1 tab PO Q6H PRN tablet 06/04/20 Unknown Rx 5/325 mg] Acetaminophen/Codeine [Tylenol 1 tab PO Q6H PRN #7 tab 08/28/20 Unknown Rx /Codeine # 3 tab] Chlorhexidine Mouthwash [Peridex] 15 ml MM BID #1 bottle 08/28/20 Unknown Rx Penicillin Vk [Veetids TAB] 500 mg PO QID 7 Days #56 tablet 08/28/20 Unknown Rx HYDROcodone/APAP 5-325 [[place] 1 each PO Q6HR PRN #12 tablet 08/05/21 Unknown Rx 5/325] Allergies Allergy/AdvReac Type Severity Reaction Status Date / Time ibuprofen Allergy Unknown Verified 08/05/21 03:55 ED Review of Systems ROS: Stated complaint: HIGH BLOOD SUGAR Other details as noted in HPI Comment: All other systems reviewed and negative ED Past Medical Hx - Past Medical History Previous Medical History?: Yes Hx Hypertension: Yes Hx Heart Attack/AMI: Yes (with stents) Hx Diabetes: Yes Additional medical history: high cholestrol, CAD. Neuroapthy - Surgical History Past Surgical History?: Yes Hx Coronary Stent: Yes (x 2) - Social History Smoking Status: Never Smoker Substance Use Type: None - Medications Home Medications: Home Medications Medication Instructions Recorded Confirmed Last Taken Type Insulin NPH/Regular [NovoLIN 70/30] 40 unit SQ QAM 07/27/15 06/03/20 1 Day Ago History ~06/02/20 Metoprolol 100 mg PO DAILY 06/03/20 06/03/20 06/02/20 21:00 History Acetaminophen [Acetaminophen TAB] 650 mg PO Q4H PRN tablet 06/04/20 Unknown Rx Aspirin [Aspirin BABY CHEW TAB] 81 mg PO QDAY tab.chew 06/04/20 Unknown Rx Insulin Lispro [Humalog] 0 unit SUB-Q ACHS vial 06/04/20 Unknown Rx Insulin NPH/Regular [NovoLIN 70/30] 25 unit SUB-Q BID units 06/04/20 Unknown Rx Metoprolol [Lopressor TAB] 100 mg PO QDAY #30 tablet 06/04/20 Unknown Rx Pantoprazole [Protonix TAB] 20 mg PO QDAY #30 tablet. 06/04/20 Unknown Rx Prasugrel [Effient] 10 mg PO QDAY #30 tablet 06/04/20 Unknown Rx Pravastatin [Pravachol] 80 mg PO QHS #30 tablet 06/04/20 Unknown Rx lisinopriL [Zestril TAB] 40 mg PO QDAY #30 06/04/20 Unknown Rx oxyCODONE /ACETAMINOPHEN [Percocet 1 tab PO Q6H PRN tablet 06/04/20 Unknown Rx 5/325 mg] Acetaminophen/Codeine [Tylenol 1 tab PO Q6H PRN #7 tab 08/28/20 Unknown Rx /Codeine # 3 tab] Chlorhexidine Mouthwash [Peridex] 15 ml MM BID #1 bottle 08/28/20 Unknown Rx Penicillin Vk [Veetids TAB] 500 mg PO QID 7 Days #56 tablet 08/28/20 Unknown Rx HYDROcodone/APAP 5-325 [[place] 1 each PO Q6HR PRN #12 tablet 08/05/21 Unknown Rx 5/325] ED Physical Exam - General Limitations: No Limitations General appearance: alert, in no apparent distress - Head Head exam: Present: atraumatic, normocephalic, normal inspection - Eye Eye exam: Present: normal appearance, PERRL, EOMI Pupils: Present: normal accommodation - ENT ENT exam: Present: normal exam, mucous membranes moist - Neck Neck exam: Present: normal inspection, full ROM. Absent: meningismus - Respiratory Respiratory exam: Present: normal lung sounds bilaterally. Absent: respiratory distress, wheezes, rales, rhonchi, stridor - Cardiovascular Cardiovascular Exam: Present: regular rate, normal rhythm. Absent: tachycardia, irregular rhythm, systolic murmur, diastolic murmur, rubs, gallop - GI/Abdominal GI/Abdominal exam: Present: soft, normal bowel sounds - Extremities Exam Extremities exam: Present: normal inspection, normal capillary refill - Back Exam Back exam: Present: normal inspection. Absent: CVA tenderness (R), CVA tenderness (L) - Neurological Exam Neurological exam: Present: alert, oriented X3, CN II-XII intact - Psychiatric Psychiatric exam: Present: normal affect, normal mood - Skin Skin exam: Present: warm, dry, intact, normal color. Absent: rash ED Course Vital Signs 09/21/21 21:32 Temperature 97.8 F Pulse Rate 109 H Respiratory 18 Rate Blood Pressure 132/77 [Right] O2 Sat by Pulse 100 Oximetry ED Medical Decision Making - Lab Data Result diagrams: 09/22/21 00:25 09/22/21 00:25 - Medical Decision Making 46-year-old is in the been a diabetic female who has been without her insulin for the last 2 days presents emerged department with nausea vomiting and ga stroparesis type symptoms found to be in DKA with a with a pH of 7.084 and CO2 of 8 with starting blood sugar of 589. She was treated accordingly with fluids and insulin as well as antinausea medication. Case was discussed with hospitalist who agrees for the need to admit for. Critical care attestation.: If time is entered above; I have spent that time in minutes in the direct care of this critically ill patient, excluding procedure time. ED Disposition Clinical Impression: DKA (diabetic ketoacidosis) Disposition: 09 ADMITTED INPATIENT Is pt being admited?: No Does the pt Need Aspirin: No Condition: Stable Instructions: Diabetic Ketoacidosis (ED)
[2021-09-22 00:42] LABS: Hemoglobin 13.9 gm/dl (10.1-14.3); Mean Corpuscular HGB Conc 32 % (30-34); Mean Corpuscular Volume 97 fl (79-97); Platelet Count 310 K/mm3 (140-440); Red Blood Count 4.53 M/mm3 (3.65-5.03); Red Cell Distribution Width 14.4 % (13.2-15.2)
[2021-09-22 00:55] LABS: Albumin 4.8 g/dL (3.9-5); Calcium 9.4 mg/dL (8.4-10.2)
[2021-09-22 01:56] LABS: Basophils % (Manual) 0 % (0.0-1.8); Eosinophils % (Manual) 0 % (0.0-4.3); Total Cells Counted 100
[2021-09-22 01:57] LABS: Platelet Estimate Consistent w Auto; RBC Morphology Normal
[2021-09-22] MEDS ORDERED: DEXTROSE 50% IN WATER (25GM) 50 ML SYRINGE IV PRN (02:42)
[2021-09-22] MEDS ORDERED: INSULIN REGULAR, HUMAN 100 UNITS in SODIUM CHLORIDE 0.9% 99 ML IV SCH ×2 (03:00→04:00)
[2021-09-22] MEDS ORDERED: ONDANSETRON 4 MG/2 ML INJ IV PRN (03:14)
[2021-09-22] MEDS ORDERED: MORPHINE 4 MG/1 ML INJ IV PRN (03:14)
[2021-09-22] MEDS ORDERED: MORPHINE 2 MG/1 ML INJ IV PRN (03:14)
[2021-09-22] MEDS ORDERED: MAGNESIUM HYDROXIDE (MOM) ORAL LIQD UDC PO PRN (03:14)
[2021-09-22] MEDS ORDERED: ACETAMINOPHEN 325 MG TAB PO PRN (03:14)
[2021-09-22] MEDS ORDERED: SODIUM CHLORIDE 0.9% 1000 ML 1,000 ML IV SCH (03:15)
--- NOTE | 2021-09-22 03:36 | History and Physical Report ---
History of Present Illness Date of examination: 09/22/21 Date of admission: 09/22/2021 Chief complaint: Nausea and vomiting History of present illness: 46-year-old -[place]ux[place]bour[place] female with known history of insulin-dependent diabetes mellitus presents to the emergency room today complaining of nausea and vomiting which has been ongoing for the past 2 days. She also indicates she has had urinary frequency and generalized weakness. She denies any abdominal pain, no hematuria or dysuria, denies any chest pain or shortness of breath. Patient ran out of her insulin over the past few days She also indicates that she had a fracture of the right foot and sprain of right ankle and therefore has a cast on the right lower extremity. Work-up in the emergency room today, labs were significant for leukocytosis of 18.9 blood glucose of 589, BUN of 32 and creatinine of 1.3. Venous pH of 7.048 Patient is being admitted with DKA.. Past History Past Medical History: acute [place], diabetes, hypertension, hyperlipidemia, other ( Neuropathy) Past Surgical History: PTCA (X2) Social history: no significant social history Family history: no significant family history Medications and Allergies Allergies Allergy/AdvReac Type Severity Reaction Status Date / Time ibuprofen Allergy Unknown Verified 08/05/21 03:55 Home Medications Medication Instructions Recorded Confirmed Last Taken Type Insulin NPH/Regular [NovoLIN 70/30] 40 unit SQ QAM 07/27/15 06/03/20 1 Day Ago History ~06/02/20 Metoprolol 100 mg PO DAILY 06/03/20 06/03/20 06/02/20 21:00 History Acetaminophen [Acetaminophen TAB] 650 mg PO Q4H PRN tablet 06/04/20 Unknown Rx Aspirin [Aspirin BABY CHEW TAB] 81 mg PO QDAY tab.chew 06/04/20 Unknown Rx Insulin Lispro [Humalog] 0 unit SUB-Q ACHS vial 06/04/20 Unknown Rx Insulin NPH/Regular [NovoLIN 70/30] 25 unit SUB-Q BID units 06/04/20 Unknown Rx Metoprolol [Lopressor TAB] 100 mg PO QDAY #30 tablet 06/04/20 Unknown Rx Pantoprazole [Protonix TAB] 20 mg PO QDAY #30 tablet. 06/04/20 Unknown Rx Prasugrel [Effient] 10 mg PO QDAY #30 tablet 06/04/20 Unknown Rx Pravastatin [Pravachol] 80 mg PO QHS #30 tablet 06/04/20 Unknown Rx lisinopriL [Zestril TAB] 40 mg PO QDAY #30 06/04/20 Unknown Rx oxyCODONE /ACETAMINOPHEN [Percocet 1 tab PO Q6H PRN tablet 06/04/20 Unknown Rx 5/325 mg] Acetaminophen/Codeine [Tylenol 1 tab PO Q6H PRN #7 tab 08/28/20 Unknown Rx /Codeine # 3 tab] Chlorhexidine Mouthwash [Peridex] 15 ml MM BID #1 bottle 08/28/20 Unknown Rx Penicillin Vk [Veetids TAB] 500 mg PO QID 7 Days #56 tablet 08/28/20 Unknown Rx HYDROcodone/APAP 5-325 [[place] 1 each PO Q6HR PRN #12 tablet 08/05/21 Unknown Rx 5/325] Active Meds: Active Medications Dextrose (Dextrose 50% In Water (25gm) 50 Ml Syringe) 0 ml IV Q30MIN PRN; Protocol PRN Reason: Hypoglycemia Insulin Human Regular 100 (units/ Sodium Chloride) 100 mls @ 1 mls/hr IV TITR TARUN; Protocol Sodium Chloride (Sodium Chloride 0.9% 10 Ml Flush Syringe) 10 ml IV BID TARUN Review of Systems Constitutional: no fever, no chills Ears, nose, mouth and throat: no nasal congestion, no sore throat Cardiovascular: no chest pain, no orthopnea, no palpitations Respiratory: no cough, no shortness of breath Gastrointestinal: nausea, vomiting, no abdominal pain, no diarrhea Genitourinary Female: no pelvic pain, no flank pain, no dysuria, no hematuria Musculoskeletal: no neck pain, no low back pain Integumentary: no rash, no pruritis Neurological: no headaches, no confusion Psychiatric: no anxiety, no depression Endocrine: no polyphagia, no excessive thirst, no polydipsia, no polyuria, no nocturia Exam - Constitutional Vitals: Temp Pulse Resp BP Pulse Ox 97.8 F 109 H 18 132/77 100 09/21/21 21:32 09/21/21 21:32 09/21/21 21:32 09/21/21 21:32 09/21/21 21:32 General appearance: Present: no acute distress, well-nourished - EENT Eyes: Present: PERRL, EOM intact. Absent: scleral icterus ENT: hearing intact, clear oral mucosa, dentition normal, other (Dry oral mucosa.) - Neck Neck: Present: supple, normal ROM - Respiratory Respiratory effort: normal Respiratory: bilateral: CTA - Cardiovascular Rhythm: regular Heart Sounds: Present: S1 & S2. Absent: gallop, systolic murmur, diastolic murmur, rub, click - Extremities Extremities: no ischemia, pulses intact, pulses symmetrical, No edema, normal temperature, normal color, Full ROM - Abdominal General gastrointestinal: Present: soft, non-tender, non-distended, normal bowel sounds. Absent: mass - Integumentary Integumentary: Present: clear, warm, dry, normal turgor. Absent: rash - Musculoskeletal Musculoskeletal: strength equal bilaterally - Psychiatric Psychiatric: appropriate mood/affect, intact judgment & insight, memory intact, cooperative - Neurologic Neurologic: CNII-XII intact, focal deficits, moves all extremities Results - Labs CBC & Chem 7: 09/22/21 00:25 09/22/21 00:25 Labs: Abnormal lab results 09/21/21 09/22/21 09/22/21 Range/Units 23:36 00:25 00:25 WBC 18.9 H (4.5-11.0) K/mm3 Hct 44.0 H (30.3-42.9) % Seg Neuts % (Manual) 95.0 H (40.0-70.0) % Lymphocytes % (Manual) 2.0 L (13.4-35.0) % Seg Neutrophils # Man 18.0 H (1.8-7.7) K/mm3 Lymphocytes # (Manual) 0.4 L (1.2-5.4) K/mm3 VBG pH (7.320-7.420) Sodium 133 L (137-145) mmol/L Chloride 92.9 L (98-107) mmol/L Carbon Dioxide 8 L* (22-30) mmol/L BUN 32 H (7-17) mg/dL Creatinine 1.3 H (0.6-1.2) mg/dL Glucose 589 H* (65-100) mg/dL POC Glucose 498 H (70-105) mg/dL Alkaline Phosphatase 137 H (35-129) units/L Total Protein 8.6 H (6.3-8.2) g/dL Lipase (13-60) units/L 09/22/21 09/22/21 Range/Units 00:25 01:49 WBC (4.5-11.0) K/mm3 Hct (30.3-42.9) % Seg Neuts % (Manual) (40.0-70.0) % Lymphocytes % (Manual) (13.4-35.0) % Seg Neutrophils # Man (1.8-7.7) K/mm3 Lymphocytes # (Manual) (1.2-5.4) K/mm3 VBG pH 7.048 L* (7.320-7.420) Sodium (137-145) mmol/L Chloride (98-107) mmol/L Carbon Dioxide (22-30) mmol/L BUN (7-17) mg/dL Creatinine (0.6-1.2) mg/dL Glucose (65-100) mg/dL POC Glucose (70-105) mg/dL Alkaline Phosphatase (35-129) units/L Total Protein (6.3-8.2) g/dL Lipase 7 L (13-60) units/L Assessment and Plan - Patient Problems (1) DKA (diabetic ketoacidosis) Current Visit: Yes Status: Acute Plan to address problem: Patient admitted and placed on insulin drip and IV fluid. Will monitor Accu-Cheks closely. (2) GERD (gastroesophageal reflux disease) Current Visit: No Status: Acute Plan to address problem: Patient on proton pump inhibitor (3) CAD (coronary artery disease) Current Visit: No Status: Chronic Plan to address problem: Will continue routine home medications. (4) HTN (hypertension) Current Visit: No Status: Chronic Qualifiers: Hypertension type: essential hypertension Plan to address problem: Will resume routine home medications and monitor vital signs closely. (5) DVT prophylaxis Current Visit: No Status: Acute Plan to address problem: Patient placed on subcutaneous heparin. (6) Full code status Current Visit: Yes Status: Acute Plan to address problem: Patient is full code.
[2021-09-22 03:53] LABS: Calcium 9.1 mg/dL (8.4-10.2)
[2021-09-22] MEDS ORDERED: D5W/0.45% NACL/KCL 20 MEQ 20 MEQ/1,000 ML BAG IV SCH ×2 (04:00)
[2021-09-22] MEDS ORDERED: PANTOPRAZOLE 40 MG INJ IV ONE (04:00)
[2021-09-22] MEDS ORDERED: POTASSIUM CHLORIDE 10 MEQ 10 MEQ/100 ML BAG IV SCH ×2 (04:00)
[2021-09-22] MEDS ORDERED: SODIUM BICARB 8.4% 50 MEQ/50 ML SYRINGE IV SCH (08:30)
--- NOTE | 2021-09-22 08:38 | Consultation ---
History of Present Illness Consult date: 09/22/21 Requesting physician: JESSICA MERRILL History of present illness: 46-year-old -[place]yp[place] female with known history of insulin-dependent diabetes mellitus presents to the emergency room today complaining of nausea and vomiting which has been ongoing for the past 2 days. She also indicates she has had urinary frequency and generalized weakness. She denies any abdominal pain, no hematuria or dysuria, denies any chest pain or shortness of breath. Patient ran out of her insulin and food over the past few days She also indicates that she had a fracture of the right foot and sprain of right ankle and therefore has a cast on the right lower extremity. Work-up in the emergency room today, labs were significant for leukocytosis of 18.9 blood glucose of 589, BUN of 32 and creatinine of 1.3. Venous pH of 7.048 Patient is being admitted with DKA. A critical care consult has been placed for management of critical drips Patient seen and examined. Vitals, labs, medications, chart reviewed. She is lying quietly in bed, still has nausea and some vomiting. She denies any chest pain, no shortness of breath, no fevers or chills. NO diarrhea, no dysuria She states she get her insulin OTC and her insurance does not cover the insulin Past History Past Medical History: acute [place], diabetes, hypertension, hyperlipidemia, other (Neuropathy) Past Surgical History: PTCA (X2) Social history: no significant social history Family history: no significant family history Medications and Allergies Allergies Allergy/AdvReac Type Severity Reaction Status Date / Time ibuprofen Allergy Unknown Verified 08/05/21 03:55 Home Medications Medication Instructions Recorded Confirmed Last Taken Type Insulin NPH/Regular [NovoLIN 70/30] 40 unit SQ QAM 07/27/15 06/03/20 1 Day Ago History ~06/02/20 Metoprolol 100 mg PO DAILY 06/03/20 06/03/20 06/02/20 21:00 History Acetaminophen [Acetaminophen TAB] 650 mg PO Q4H PRN tablet 06/04/20 Unknown Rx Aspirin [Aspirin BABY CHEW TAB] 81 mg PO QDAY tab.chew 06/04/20 Unknown Rx Insulin Lispro [Humalog] 0 unit SUB-Q ACHS vial 06/04/20 Unknown Rx Metoprolol [Lopressor TAB] 100 mg PO QDAY #30 tablet 06/04/20 Unknown Rx Pantoprazole [Protonix TAB] 20 mg PO QDAY #30 tablet. 06/04/20 Unknown Rx Prasugrel [Effient] 10 mg PO QDAY #30 tablet 06/04/20 Unknown Rx Pravastatin [Pravachol] 80 mg PO QHS #30 tablet 06/04/20 Unknown Rx lisinopriL [Zestril TAB] 40 mg PO QDAY #30 06/04/20 Unknown Rx oxyCODONE /ACETAMINOPHEN [Percocet 1 tab PO Q6H PRN tablet 06/04/20 Unknown Rx 5/325 mg] Acetaminophen/Codeine [Tylenol 1 tab PO Q6H PRN #7 tab 08/28/20 Unknown Rx /Codeine # 3 tab] Chlorhexidine Mouthwash [Peridex] 15 ml MM BID #1 bottle 08/28/20 Unknown Rx Penicillin Vk [Veetids TAB] 500 mg PO QID 7 Days #56 tablet 08/28/20 Unknown Rx HYDROcodone/APAP 5-325 [[place] 1 each PO Q6HR PRN #12 tablet 08/05/21 Unknown Rx 5/325] Aspirin [Aspirin BABY CHEW TAB] 81 mg PO QHS #30 tab.chew 09/25/21 Unknown Rx Famotidine [Pepcid] 20 mg PO QDAY #30 tablet 09/25/21 Unknown Rx Insulin NPH/Regular [NovoLIN 70/30] 25 unit SUB-Q BID #10 ml 09/25/21 Unknown Rx Metoprolol [Lopressor TAB] 100 mg PO BID #60 tablet 09/25/21 Unknown Rx Prasugrel [Effient] 10 mg PO QHS #30 tablet 09/25/21 Unknown Rx Pravastatin [Pravachol] 80 mg PO QHS #30 tablet 09/25/21 Unknown Rx lisinopriL [Zestril TAB] 40 mg PO QDAY #30 tablet 09/25/21 Unknown Rx Active Meds: Active Medications Acetaminophen (Acetaminophen 325 Mg Tab) 650 mg PO Q6H PRN PRN Reason: Pain MILD(1-3)/Fever >100.5/MÁRQUEZ Dextrose (Dextrose 50% In Water (25gm) 50 Ml Syringe) 0 ml IV Q30MIN PRN; Protocol PRN Reason: Hypoglycemia Famotidine (Famotidine 20 Mg Tab) 20 mg PO QDAY TARUN Insulin Human Regular 100 (units/ Sodium Chloride) 100 mls @ 1 mls/hr IV TITR TARUN; Protocol Last Titration: 09/22/21 08:05 Dose: 5 units/hr, 5 mls/hr Sodium Chloride (Nacl 0.9% 1000 Ml) 1,000 mls @ 150 mls/hr IV DIRECT TARUN Last Admin: 09/22/21 06:14 Dose: 150 mls/hr Potassium Chloride/Dextrose/Sod Cl (D5w/0.45% Nacl/Kcl 20 Meq) 20 meq in 1,000 mls @ 125 mls/hr IV DIRECT TARUN Sodium Chloride (Nacl 0.9% 1000 Ml) 1,000 mls @ 999 mls/hr IV BOLUS ONE Stop: 09/22/21 09:15 Sodium Chloride (Nacl 0.9% 1000 Ml) 1,000 mls @ 999 mls/hr IV BOLUS ONE Stop: 09/22/21 10:30 Magnesium Hydroxide (Magnesium Hydroxide (Mom) Oral Liqd Udc) 30 ml PO Q4H PRN PRN Reason: Constipation Morphine Sulfate (Morphine 2 Mg/1 Ml Inj) 2 mg IV Q4H PRN PRN Reason: Pain, Moderate (4-6) Morphine Sulfate (Morphine 4 Mg/1 Ml Inj) 4 mg IV Q4H PRN PRN Reason: Pain , Severe (7-10) Ondansetron HCl (Ondansetron 4 Mg/2 Ml Inj) 4 mg IV Q8H PRN PRN Reason: Nausea And Vomiting Sodium Bicarbonate (Sodium Bicarb 8.4% 50 Meq/50 Ml Syringe) 100 meq IV ONCE@0830 TARUN Stop: 09/22/21 12:30 Sodium Chloride (Sodium Chloride 0.9% 10 Ml Flush Syringe) 10 ml IV BID TARUN Sodium Chloride (Sodium Chloride 0.9% 10 Ml Flush Syringe) 10 ml IV PRN PRN PRN Reason: LINE FLUSH Review of Systems All systems: negative (as in HPI) Physical Examination Vital signs: Vital Signs Temp Pulse Resp BP Pulse Ox 97.8 F 109 H 18 132/77 100 09/21/21 21:32 09/21/21 21:32 09/21/21 21:32 09/21/21 21:32 09/21/21 21:32 General appearance: no acute distress Eyes: non-icteric ENT: oropharynx dry Neck: supple, no JVD Effort: normal Ascultation: Bilateral: diminished breath sounds Cardiovascular: regular rate and rhythm, other (S1,S2) Gastrointestinal: normoactive bowel sounds, soft, tender (mild epigastric, no rebound) Integumentary: normal Extremities: no cyanosis, no edema, pulses normal, other (Right lower extremity below knee cast) normal mental status, non-focal exam, pupils equal and round, motor strength normal and mood appropriate, affect normal Results - Laboratory Findings CBC and BMP: 09/24/21 06:56 09/25/21 06:37 Abnormal lab findings: Abnormal Labs 09/21/21 09/22/21 09/22/21 23:36 00:25 00:25 WBC 18.9 H Hct 44.0 H Seg Neuts % (Manual) 95.0 H Lymphocytes % (Manual) 2.0 L Seg Neutrophils # Man 18.0 H Lymphocytes # (Manual) 0.4 L VBG pH Sodium 133 L Chloride 92.9 L Carbon Dioxide 8 L* BUN 32 H Creatinine 1.3 H Glucose 589 H* POC Glucose 498 H Magnesium Alkaline Phosphatase 137 H Total Protein 8.6 H Lipase 09/22/21 09/22/21 09/22/21 00:25 01:49 02:54 WBC Hct Seg Neuts % (Manual) Lymphocytes % (Manual) Seg Neutrophils # Man Lymphocytes # (Manual) VBG pH 7.048 L* Sodium Chloride Carbon Dioxide BUN Creatinine Glucose POC Glucose Magnesium 2.50 H Alkaline Phosphatase Total Protein Lipase 7 L 09/22/21 09/22/21 09/22/21 02:54 04:04 04:54 WBC Hct Seg Neuts % (Manual) Lymphocytes % (Manual) Seg Neutrophils # Man Lymphocytes # (Manual) VBG pH Sodium Chloride Carbon Dioxide 10 L BUN 31 H Creatinine 1.3 H Glucose 473 H POC Glucose 454 H 431 H Magnesium Alkaline Phosphatase Total Protein Lipase 09/22/21 09/22/21 09/22/21 06:05 06:58 08:07 WBC Hct Seg Neuts % (Manual) Lymphocytes % (Manual) Seg Neutrophils # Man Lymphocytes # (Manual) VBG pH Sodium Chloride Carbon Dioxide BUN Creatinine Glucose POC Glucose 379 H 297 H 272 H Magnesium Alkaline Phosphatase Total Protein Lipase Assessment and Plan DKA (diabetic ketoacidosis) Metabolic Acidosis Insulin-dependent diabetes mellitus(IDDM) Acute Kidney Injury(PREMA) Vasomotor Nephropathy Hyponatremia Nausea/Vomiting h/o CAD (coronary artery disease) s/p X2 stents in 2016 HTN (hypertension), HLD GERD (Gastroesophageal Reflux Disease) Right Foot Fracture/Right Ankle Sprain -IVF per protocol -Management of DKA per protocol- Serial BMPs, insulin infusion, hourly blood glucose checks. Replete electrolytes as clinically indicated -Symptom management of nausea -Avoid nephrotoxins, dose all medications for GFR and CrCL -Chronic home medications as clinically indicated -VTE prophylaxis- Heparin, the patient also has a cast on the RLExt, making her a moderate risk patient -PPI for GERD -Education on the need fro medical adherence. -food service worker consult to help with insulin therapy -Lifestyle modifications Discussed care with primary service Updated the nursing staff and the patient re care plan The high probability of a clinically significant, sudden or life threatening deterioration of the [multiple] system(s) required my full and direct attention, intervention and personal management. The aggregate critical care time was [33] minutes. This time is in addition to time spent performing reported procedures but includes the following: [x] Data Review and interpretation [x] Patient assessment and monitoring of vital signs [x] Documentation [x] Medication orders and management
[2021-09-22] MEDS: FAMOTIDINE 20 MG TAB PO SCH (09:16)
[2021-09-22 09:48] LABS: BUN/Creatinine Ratio 23; Blood Urea Nitrogen 23 mg/dL (7-17); Calcium 7.9 mg/dL (8.4-10.2); Hemolysis Index 101
--- NOTE | 2021-09-22 10:48 | Event Note ---
<SCOTT SOLIS - Last Filed: 09/22/21 15:32> Date: 09/22/21 This is a 46-year-old female with known past medical history of IDDM, HTN, HLD, [place], and CAD s/p X2 stents admitted for DKA. Hospital Course to Date: 09/22: Patient was seen and examined at the bedside. Fully AAO, on RA. On insulin gtt per DKA protocol. Anion gap and BG are still elevated this am. Orders placed for additional IVF boluses administered and Bcarb. Continue DKA protocol and serial labs until gap is closed. Plan of care discussed with the patient at the bedside. She voiced that she ran out of insulin X3days ago, unable to afford meds due to financial issues. She is current not working due to RLE fracture sustained at work. Case management consulted for possible resources and aide with medications after discharge. All questions and concerns were voiced at this time. Patient verbalized understanding and agreement to current plan of care. Assessment and Plan #DKA (diabetic ketoacidosis) #Metabolic Acidosis #Insulin-dependent diabetes mellitus(IDDM) - Ran out of insulin 3days ago, unable to afford meds due to financial issues - Presented in anion gap,metabolic acidosis - DKA protcol was initiated - BG and Anion gap still evelated this am - Additional IVF bolus administered - Continue insulin gtt and IVF resuscitation per protocol - Monitor and replace electrolytes as needed - Monitor anion gap, serial Labs ordered #Acute Kidney Injury(PREMA) Vasomotor Nephropathy #Hyponatremia - most likely related to DKA/Dehydration - Continue IVF resuscitation - Strict intake and output - Avoid nephrotoxic medications; Renally dose medications - Monitor and replace electrolytes as needed - Serial Labs ordered #Nausea/Vomiting - C/o of nausea and vomiting X2 days - Resolved since admit, most likely due to DKA - PRN antiemetic for N/V #CAD (coronary artery disease) s/p X2 stents in 2016 #HTN (hypertension), HLD - Home medications reconcile - BP currently stable - Continue blood pressure monitor per protocol - Maintain SBP less than 160 #GERD (Gastroesophageal Reflux Disease) - PPI- Pepcid #Right Foot Fracture #Right Ankle Sprain - Recent fracture of the right foot and sprain of right ankle while at work - Cast present on the right lower extremity - Per patient F/U to Ortho on Sunday for possible Cast removal #GI/DVT prophylaxis - PPI- Pepcid - SCDs to bilateral lower extremities while in bed <JESSICA MERRILL - Last Filed: 09/22/21 17:07> I saw and evaluated the patient. I agree with the findings and the plan of care as documented in the Nurse Practitioner's~note, with the following corrections and additions. 2ND IMS visit. 30MINS EXTRA TIME
[2021-09-22 16:38] LABS: BUN/Creatinine Ratio 20; Blood Urea Nitrogen 18 mg/dL (7-17); Calcium 7.8 mg/dL (8.4-10.2); Hemolysis Index 4
[2021-09-22] MEDS: INSULIN NPH/REGULAR 70/30 INJ SUB-Q SCH (18:08)
[2021-09-22] MEDS ORDERED: POTASSIUM PHOSPHATE 45 MMOL in SODIUM CHLORIDE 0.9% 500 ML 500 ML IV ONE (18:30)
[2021-09-22] MEDS: ASPIRIN 81 MG TAB CHEW PO SCH (22:34)
[2021-09-22] MEDS: PRASUGREL 10 MG TAB PO SCH (22:34)
[2021-09-22] MEDS: PRAVASTATIN 80 MG TAB PO SCH (22:34)
[2021-09-22] MEDS: INSULIN LISPRO 100 UNIT/ML SUB-Q SCH (22:34)
[2021-09-22] MEDS: METOPROLOL TARTRATE 100 MG TAB PO SCH (22:35)
[2021-09-22 23:44] LABS: Bacteria,Urine 1+ /HPF (Negative); Bilirubin,Urine NEG (Negative); Blood,Urine LG (Negative); Color,Urine Yellow (Yellow); Mucus,Urine FEW /HPF; Urobilinogen,Urine < 2.0 mg/dL (<2.0)
[2021-09-23 05:31] LABS: Basophils % (Auto) 0.2 % (0.0-1.8); Hematocrit 34.6 % (30.3-42.9); Hemoglobin 11.4 gm/dl (10.1-14.3); Lymphocytes # (Auto) 1.4 K/mm3 (1.2-5.4); Lymphocytes % (Auto) 7.6 % (13.4-35.0); Mean Corpuscular HGB Conc 33 % (30-34); Mean Corpuscular Volume 93 fl (79-97); Monocytes # (Auto) 1.5 K/mm3 (0.0-0.8); Monocytes % (Auto) 8.7 % (0.0-7.3); Platelet Count 219 K/mm3 (140-440); Red Blood Count 3.72 M/mm3 (3.65-5.03); Red Cell Distribution Width 14.8 % (13.2-15.2)
[2021-09-23 05:41] LABS: BUN/Creatinine Ratio 15; Blood Urea Nitrogen 12 mg/dL (7-17); Calcium 8.4 mg/dL (8.4-10.2); Hemolysis Index 3
[2021-09-23] MEDS ORDERED: POTASSIUM PHOSPHATE 15 MMOL in SODIUM CHLORIDE 0.9% 250ML 250 ML IV ONE (09:30)
[2021-09-23] MEDS: LISINOPRIL 40 MG TAB PO SCH (09:54)
[2021-09-23] MEDS: METOPROLOL TARTRATE 100 MG TAB PO SCH ×2 (09:54→21:04)
[2021-09-23] MEDS: FAMOTIDINE 20 MG TAB PO SCH (09:55)
--- NOTE | 2021-09-23 10:52 | Progress Note ---
<SCOTT SOLIS - Last Filed: 09/23/21 12:15> Assessment and Plan Assessment and plan: This is a 46-year-old female with known past medical history of IDDM, HTN, HLD, [place], and CAD s/p X2 stents admitted for DKA. Hospital Course to Date: 09/22: Patient was seen and examined at the bedside. Fully AAO, on RA. On insulin gtt per DKA protocol. Anion gap and BG are still elevated this am. Orders placed for additional IVF boluses administered and Bcarb. Continue DKA protocol and serial labs until gap is closed. Plan of care discussed with the patient at the bedside. She voiced that she ran out of insulin X3days ago, unable to afford meds due to financial issues. She is current not working due to RLE fracture sustained at work. Case management consulted for possible resources and aide with medications after discharge. All questions and concerns were voiced at this time. Patient verbalized understanding and agreement to current plan of care. 09/23: Patient transitioned to subQ insulin overnight. Home bsal insulin regimen resumed, patient is tolerating diet. Patient is stable for transfer to the floor. Discharge planning, case management is following. Assessment and Plan #DKA (diabetic ketoacidosis) #Metabolic Acidosis #Insulin-dependent diabetes mellitus(IDDM) - Ran out of insulin 3days ago, unable to afford meds due to financial issues - Presented in anion gap,metabolic acidosis - S/p DKA protcol - Transitioned to SubQ insulin overnight - Patient is tolerating diet - Home insulin regimen resumed - Continue BG check and SSI [facility] - Basal-70/30 BID - Avoid Hypoglycemia #Acute Kidney Injury(PREMA) Vasomotor Nephropathy #Hyponatremia - most likely related to DKA/Dehydration - Renal function normalized post IVF hydration - Strict intake and output - Avoid nephrotoxic medications; Renally dose medications - Monitor and replace electrolytes as needed #Nausea/Vomiting-resolved - C/o of nausea and vomiting X2 days - Resolved since admit, most likely due to DKA - PRN antiemetic for N/V #CAD (coronary artery disease) s/p X2 stents in 2016 #HTN (hypertension), HLD - Home medications reconcile - BP currently stable - Continue blood pressure monitor per protocol - Maintain SBP less than 160 - Per patient last [place] and stents placement was in 2016, currently has not follow up with a special agent in charge since - Patient might benefit from a Cardio referral outpatient for further management. #GERD (Gastroesophageal Reflux Disease) - PPI- Pepcid - PRN Calcium carbonate added for indigestion #Right Foot Fracture #Right Ankle Sprain - Recent fracture of the right foot and sprain of right ankle while at work - Cast present on the right lower extremity - Per patient F/U to Ortho on Sunday for possible Cast removal #GI/DVT prophylaxis - PPI- Pepcid - SCDs to bilateral lower extremities while in bed The high probability of a clinically significant, sudden or life threatening deterioration of the [multiple] system(s) required my full and direct attention, intervention and personal management. The aggregate critical care time was [60] minutes. This time is in addition to time spent performing reported procedures but includes the following: [x] Data Review and interpretation [x] Patient assessment and monitoring of vital signs [x] Documentation [x] Medication orders and management Disposition Plan: ICU Total Time Spent with Patient (Minutes): 60 History Interval history: Patient seen and examined at the bedside. Fully AAO, on RA, c/o of acid reflux this am, but no pain nor any discomfort today, VSS. Hospitalist Physical - Constitutional Vitals: Temp Pulse Resp BP Pulse Ox 98.1 F 87 16 132/73 100 09/23/21 08:00 09/23/21 10:00 09/23/21 10:00 09/23/21 10:00 09/23/21 10:00 General appearance: Present: no acute distress, well-nourished, obese - EENT Eyes: Present: PERRL ENT: hearing intact, clear oral mucosa - Neck Neck: Present: normal ROM - Respiratory Respiratory effort: normal Respiratory: bilateral: CTA - Cardiovascular Rhythm: regular Heart Sounds: Present: S1 & S2 - Extremities Extremities: no ischemia, pulses intact, pulses symmetrical Peripheral Pulses: within normal limits - Abdominal General gastrointestinal: soft, non-distended, normal bowel sounds - Integumentary Integumentary: Present: clear, warm, dry - Psychiatric Psychiatric: appropriate mood/affect, cooperative - Neurologic Neurologic: CNII-XII intact, moves all extremities - Allied Health Allied health notes reviewed: nursing Results - Labs CBC & Chem 7: 09/23/21 05:02 09/23/21 05:02 Labs: Laboratory Last Values WBC 17.8 K/mm3 (4.5-11.0) H 09/23/21 05:02 RBC 3.72 M/mm3 (3.65-5.03) 09/23/21 05:02 Hgb 11.4 gm/dl (10.1-14.3) 09/23/21 05:02 Hct 34.6 % (30.3-42.9) D 09/23/21 05:02 MCV 93 fl (79-97) 09/23/21 05:02 MCH 31 pg (28-32) 09/23/21 05:02 MCHC 33 % (30-34) 09/23/21 05:02 RDW 14.8 % (13.2-15.2) 09/23/21 05:02 Plt Count 219 K/mm3 (140-440) 09/23/21 05:02 Lymph % (Auto) 7.6 % (13.4-35.0) L 09/23/21 05:02 [place] % (Auto) 8.7 % (0.0-7.3) H 09/23/21 05:02 Eos % (Auto) 0.0 % (0.0-4.3) 09/23/21 05:02 Baso % (Auto) 0.2 % (0.0-1.8) 09/23/21 05:02 Lymph # (Auto) 1.4 K/mm3 (1.2-5.4) 09/23/21 05:02 [place] # (Auto) 1.5 K/mm3 (0.0-0.8) H 09/23/21 05:02 Eos # (Auto) 0.0 K/mm3 (0.0-0.4) 09/23/21 05:02 Baso # (Auto) 0.0 K/mm3 (0.0-0.1) 09/23/21 05:02 Add Manual Diff Complete 09/22/21 00:25 Total Counted 100 09/22/21 00:25 Seg Neutrophils % 83.5 % (40.0-70.0) H 09/23/21 05:02 Seg Neuts % (Manual) 95.0 % (40.0-70.0) H 09/22/21 00:25 Band Neutrophils % 0 % 09/22/21 00:25 Lymphocytes % (Manual) 2.0 % (13.4-35.0) L 09/22/21 00:25 Reactive Lymphs % (Man) 0 % 09/22/21 00:25 Monocytes % (Manual) 3.0 % (0.0-7.3) 09/22/21 00:25 Eosinophils % (Manual) 0 % (0.0-4.3) 09/22/21 00:25 Basophils % (Manual) 0 % (0.0-1.8) 09/22/21 00:25 Metamyelocytes % 0 % 09/22/21 00:25 Myelocytes % 0 % 09/22/21 00:25 Promyelocytes % 0 % 09/22/21 00:25 Blast Cells % 0 % 09/22/21 00:25 Nucleated RBC % Not Reportable 09/22/21 00:25 Seg Neutrophils # 14.9 K/mm3 (1.8-7.7) H 09/23/21 05:02 Seg Neutrophils # Man 18.0 K/mm3 (1.8-7.7) H 09/22/21 00:25 Band Neutrophils # 0.0 K/mm3 09/22/21 00:25 Lymphocytes # (Manual) 0.4 K/mm3 (1.2-5.4) L 09/22/21 00:25 Abs React Lymphs (Man) 0.0 K/mm3 09/22/21 00:25 Monocytes # (Manual) 0.6 K/mm3 (0.0-0.8) 09/22/21 00:25 Eosinophils # (Manual) 0.0 K/mm3 (0.0-0.4) 09/22/21 00:25 Basophils # (Manual) 0.0 K/mm3 (0.0-0.1) 09/22/21 00:25 Metamyelocytes # 0.0 K/mm3 09/22/21 00:25 Myelocytes # 0.0 K/mm3 09/22/21 00:25 Promyelocytes # 0.0 K/mm3 09/22/21 00:25 Blast Cells # 0.0 K/mm3 09/22/21 00:25 WBC Morphology Not Reportable 09/22/21 00:25 Hypersegmented Neuts Not Reportable 09/22/21 00:25 Hyposegmented Neuts Not Reportable 09/22/21 00:25 Hypogranular Neuts Not Reportable 09/22/21 00:25 Smudge Cells Not Reportable 09/22/21 00:25 Toxic Granulation Not Reportable 09/22/21 00:25 Toxic Vacuolation Not Reportable 09/22/21 00:25 Dohle Bodies Not Reportable 09/22/21 00:25 Pelger-Huet Anomaly Not Reportable 09/22/21 00:25 Grey Rods Not Reportable 09/22/21 00:25 Platelet Estimate Consistent w auto 09/22/21 00:25 Clumped Platelets Not Reportable 09/22/21 00:25 Plt Clumps, EDTA Not Reportable 09/22/21 00:25 Large Platelets Not Reportable 09/22/21 00:25 Giant Platelets Not Reportable 09/22/21 00:25 Platelet Satelliting Not Reportable 09/22/21 00:25 Plt Morphology Comment Not Reportable 09/22/21 00:25 RBC Morphology Normal 09/22/21 00:25 Dimorphic RBCs Not Reportable 09/22/21 00:25 Polychromasia Not Reportable 09/22/21 00:25 Hypochromasia Not Reportable 09/22/21 00:25 Poikilocytosis Not Reportable 09/22/21 00:25 Anisocytosis Not Reportable 09/22/21 00:25 Microcytosis Not Reportable 09/22/21 00:25 Macrocytosis Not Reportable 09/22/21 00:25 Spherocytes Not Reportable 09/22/21 00:25 Pappenheimer Bodies Not Reportable 09/22/21 00:25 Sickle Cells Not Reportable 09/22/21 00:25 Target Cells Not Reportable 09/22/21 00:25 Tear Drop Cells Not Reportable 09/22/21 00:25 Ovalocytes Not Reportable 09/22/21 00:25 Helmet Cells Not Reportable 09/22/21 00:25 [place] Bodies Not Reportable 09/22/21 00:25 [place] Rings Not Reportable 09/22/21 00:25 Lydia Cells Not Reportable 09/22/21 00:25 Bite Cells Not Reportable 09/22/21 00:25 Crenated Cell Not Reportable 09/22/21 00:25 Elliptocytes Not Reportable 09/22/21 00:25 Acanthocytes (Spur) Not Reportable 09/22/21 00:25 Rouleaux Not Reportable 09/22/21 00:25 Hemoglobin C Crystals Not Reportable 09/22/21 00:25 Schistocytes Not Reportable 09/22/21 00:25 Malaria parasites Not Reportable 09/22/21 00:25 Robe Bodies Not Reportable 09/22/21 00:25 Hem Pathologist Commnt No 09/22/21 00:25 VBG pH 7.048 (7.320-7.420) L* 09/22/21 01:49 Sodium 137 mmol/L (137-145) 09/23/21 05:02 Potassium 3.4 mmol/L (3.6-5.0) L 09/23/21 05:02 Chloride 107.0 mmol/L (98-107) 09/23/21 05:02 Carbon Dioxide 19 mmol/L (22-30) L 09/23/21 05:02 Anion Gap 14 mmol/L 09/23/21 05:02 BUN 12 mg/dL (7-17) 09/23/21 05:02 Creatinine 0.8 mg/dL (0.6-1.2) 09/23/21 05:02 Estimated GFR > 60 ml/min 09/23/21 05:02 BUN/Creatinine Ratio 15 % 09/23/21 05:02 Glucose 102 mg/dL (65-100) H 09/23/21 05:02 POC Glucose 127 mg/dL (70-105) H 09/23/21 07:53 Hemoglobin A1c 7.8 % (4-6) H 09/23/21 05:02 Calcium 8.4 mg/dL (8.4-10.2) 09/23/21 05:02 Phosphorus 1.30 mg/dL (2.5-4.5) L D 09/23/21 05:02 Magnesium 1.80 mg/dL (1.7-2.3) 09/23/21 05:02 Total Bilirubin 0.90 mg/dL (0.1-1.2) 09/22/21 00:25 AST 12 units/L (5-40) 09/22/21 00:25 ALT 13 units/L (7-56) 09/22/21 00:25 Alkaline Phosphatase 137 units/L (35-129) H 09/22/21 00:25 Total Protein 8.6 g/dL (6.3-8.2) H 09/22/21 00:25 Albumin 4.8 g/dL (3.9-5) 09/22/21 00:25 Albumin/Globulin Ratio 1.3 % 09/22/21 00:25 Lipase 7 units/L (13-60) L 09/22/21 00:25 Urine Color Yellow (Yellow) 09/22/21 22:00 Urine Turbidity Clear (Clear) 09/22/21 22:00 Urine pH 6.0 (5.0-7.0) 09/22/21 22:00 Ur Specific [place] 1.015 (1.003-1.030) 09/22/21 22:00 Urine Protein 30 mg/dl mg/dL (Negative) 09/22/21 22:00 Urine Glucose (UA) >=500 mg/dL (Negative) 09/22/21 22:00 Urine Ketones 80 mg/dL (Negative) 09/22/21 22:00 Urine Blood Lg (Negative) 09/22/21 22:00 Urine Nitrite Neg (Negative) 09/22/21 22:00 Urine Bilirubin Neg (Negative) 09/22/21 22:00 Urine Urobilinogen < 2.0 mg/dL (<2.0) 09/22/21 22:00 Ur Leukocyte Esterase Neg (Negative) 09/22/21 22:00 Urine WBC (Auto) 7.0 /HPF (0.0-6.0) H 09/22/21 22:00 Urine RBC (Auto) 1.0 /HPF (0.0-6.0) 09/22/21 22:00 U Epithel Cells (Auto) < 1.0 /HPF (0-13.0) 09/22/21 22:00 Urine Bacteria (Auto) 1+ /HPF (Negative) 09/22/21 22:00 Urine Mucus Few /HPF 09/22/21 22:00 Bravo/IV: Voiding Method Bedside Commode Active Medications - Current Medications Current Medications: Generic Name Dose Route Start Last Admin Trade Name Freq PRN Reason Stop Dose Admin Acetaminophen 650 mg 09/22/21 03:14 Acetaminophen 325 Mg Tab PO Q6H PRN Pain MILD(1-3)/Fever >100.5/MÁRQUEZ Aspirin 81 mg 09/22/21 22:00 09/22/21 22:34 Aspirin 81 Mg Tab Chew PO 81 mg QHS TARUN Administration Dextrose 0 ml 09/22/21 02:42 Dextrose 50% In Water (25gm) 50 Ml Syringe IV Q30MIN PRN Hypoglycemia Protocol Famotidine 20 mg 09/22/21 10:00 09/23/21 09:55 Famotidine 20 Mg Tab PO 20 mg QDAY TARUN Administration Potassium Phosphate 15 mmol/ 255 mls @ 125 mls/hr 09/23/21 09:30 09/23/21 09:55 Sodium Chloride IV 09/23/21 11:32 125 mls/hr ONCE ONE Administration Insulin Human Isoph/Insulin Regular 25 unit 09/22/21 18:30 09/22/21 18:08 Insulin Nph/Regular 70/30 Inj SUB-Q 25 unit BIDDIAB TARUN Administration Insulin Human Lispro 0 unit 09/22/21 22:00 09/22/21 22:34 Insulin Lispro 100 Unit/Ml SUB-Q 2 unit ACHS TARUN Administration Protocol Lisinopril 40 mg 09/23/21 10:00 09/23/21 09:54 Lisinopril 40 Mg Tab PO 40 mg QDAY TARUN Administration Magnesium Hydroxide 30 ml 09/22/21 03:14 09/22/21 18:19 Magnesium Hydroxide (Mom) Oral Liqd Udc PO 30 ml Q4H PRN Administration Constipation Metoprolol Tartrate 100 mg 09/22/21 22:00 09/23/21 09:54 Metoprolol Tartrate 100 Mg Tab PO 100 mg BID TARUN Administration Morphine Sulfate 2 mg 09/22/21 03:14 Morphine 2 Mg/1 Ml Inj IV Q4H PRN Pain, Moderate (4-6) Morphine Sulfate 4 mg 09/22/21 03:14 Morphine 4 Mg/1 Ml Inj IV Q4H PRN Pain , Severe (7-10) Ondansetron HCl 4 mg 09/22/21 03:14 Ondansetron 4 Mg/2 Ml Inj IV Q8H PRN Nausea And Vomiting Prasugrel 10 mg 09/22/21 22:00 09/22/21 22:34 Prasugrel 10 Mg Tab PO 10 mg QHS TARUN Administration Pravastatin Sodium 80 mg 09/22/21 22:00 09/22/21 22:34 Pravastatin 80 Mg Tab PO 80 mg QHS TARUN Administration Sodium Chloride 10 ml 09/22/21 10:00 09/23/21 09:55 Sodium Chloride 0.9% 10 Ml Flush Syringe IV 10 ml BID TARUN Administration Sodium Chloride 10 ml 09/22/21 03:14 Sodium Chloride 0.9% 10 Ml Flush Syringe IV PRN PRN LINE FLUSH Nutrition/Malnutrition Assess - Dietary Evaluation Nutrition/Malnutrition Findings: Nutrition Notes Start: 09/22/21 16:51 Freq: Status: Active Protocol: Document 09/22/21 16:51 BASIA (Rec: 09/22/21 17:00 BASIA [id number]) Nutrition Notes Need for Assessment generated from: MD Order,Education Initial or Follow up Brief Note Current Diagnosis Acute Kidney Injury,Coronary Artery Disease,Diabetes, Hypertension,Hyperlipidemia Other Pertinent Diagnosis DKA, Metabolic Acidosis, N/V, GERD. Current Diet NPO (since 09/22 03:18). Height 5 ft 4 in Weight 77.111 kg [place] Body Weight (kg) 54.54 BMI 29.2 Weight change and time frame None provided at admission. Weight Status Overweight Subjective/Other Information RD consult for nutrition education. Pt currently on NPO. Pt is s/p fracture and sprain of R-Ankle w/cast. Pt still in critical condition , not a candidate for Nutrition Education at the time, will assess feasibility on F/U. Percent of energy/protein needs met: Pt currently on NPO. Nutrition Intervention Follow-Up By: 09/26/21 Additional Comments Nutrition education will be provided on F/U, if feasible. When pertinent, start monitoring food tolerance, %PO intake of meals, and BM. <JESSICA MERRILL - Last Filed: 09/24/21 07:07> Assessment and Plan Assessment and plan: I saw and evaluated the patient. I agree with the findings and the plan of care as documented in the Nurse Practitioner's~note, with the following corrections and additions. Hospitalist Physical - Constitutional Vitals: Temp Pulse Resp BP Pulse Ox 98.0 F 76 16 141/77 100 09/24/21 04:39 09/24/21 04:39 09/24/21 04:39 09/24/21 04:39 09/24/21 04:39 Results - Labs CBC & Chem 7: 09/23/21 05:02 09/23/21 05:02 Labs: Laboratory Last Values WBC 17.8 K/mm3 (4.5-11.0) H 09/23/21 05:02 RBC 3.72 M/mm3 (3.65-5.03) 09/23/21 05:02 Hgb 11.4 gm/dl (10.1-14.3) 09/23/21 05:02 Hct 34.6 % (30.3-42.9) D 09/23/21 05:02 MCV 93 fl (79-97) 09/23/21 05:02 MCH 31 pg (28-32) 09/23/21 05:02 MCHC 33 % (30-34) 09/23/21 05:02 RDW 14.8 % (13.2-15.2) 09/23/21 05:02 Plt Count 219 K/mm3 (140-440) 09/23/21 05:02 Lymph % (Auto) 7.6 % (13.4-35.0) L 09/23/21 05:02 [place] % (Auto) 8.7 % (0.0-7.3) H 09/23/21 05:02 Eos % (Auto) 0.0 % (0.0-4.3) 09/23/21 05:02 Baso % (Auto) 0.2 % (0.0-1.8) 09/23/21 05:02 Lymph # (Auto) 1.4 K/mm3 (1.2-5.4) 09/23/21 05:02 [place] # (Auto) 1.5 K/mm3 (0.0-0.8) H 09/23/21 05:02 Eos # (Auto) 0.0 K/mm3 (0.0-0.4) 09/23/21 05:02 Baso # (Auto) 0.0 K/mm3 (0.0-0.1) 09/23/21 05:02 Add Manual Diff Complete 09/22/21 00:25 Total Counted 100 09/22/21 00:25 Seg Neutrophils % 83.5 % (40.0-70.0) H 09/23/21 05:02 Seg Neuts % (Manual) 95.0 % (40.0-70.0) H 09/22/21 00:25 Band Neutrophils % 0 % 09/22/21 00:25 Lymphocytes % (Manual) 2.0 % (13.4-35.0) L 09/22/21 00:25 Reactive Lymphs % (Man) 0 % 09/22/21 00:25 Monocytes % (Manual) 3.0 % (0.0-7.3) 09/22/21 00:25 Eosinophils % (Manual) 0 % (0.0-4.3) 09/22/21 00:25 Basophils % (Manual) 0 % (0.0-1.8) 09/22/21 00:25 Metamyelocytes % 0 % 09/22/21 00:25 Myelocytes % 0 % 09/22/21 00:25 Promyelocytes % 0 % 09/22/21 00:25 Blast Cells % 0 % 09/22/21 00:25 Nucleated RBC % Not Reportable 09/22/21 00:25 Seg Neutrophils # 14.9 K/mm3 (1.8-7.7) H 09/23/21 05:02 Seg Neutrophils # Man 18.0 K/mm3 (1.8-7.7) H 09/22/21 00:25 Band Neutrophils # 0.0 K/mm3 09/22/21 00:25 Lymphocytes # (Manual) 0.4 K/mm3 (1.2-5.4) L 09/22/21 00:25 Abs React Lymphs (Man) 0.0 K/mm3 09/22/21 00:25 Monocytes # (Manual) 0.6 K/mm3 (0.0-0.8) 09/22/21 00:25 Eosinophils # (Manual) 0.0 K/mm3 (0.0-0.4) 09/22/21 00:25 Basophils # (Manual) 0.0 K/mm3 (0.0-0.1) 09/22/21 00:25 Metamyelocytes # 0.0 K/mm3 09/22/21 00:25 Myelocytes # 0.0 K/mm3 09/22/21 00:25 Promyelocytes # 0.0 K/mm3 09/22/21 00:25 Blast Cells # 0.0 K/mm3 09/22/21 00:25 WBC Morphology Not Reportable 09/22/21 00:25 Hypersegmented Neuts Not Reportable 09/22/21 00:25 Hyposegmented Neuts Not Reportable 09/22/21 00:25 Hypogranular Neuts Not Reportable 09/22/21 00:25 Smudge Cells Not Reportable 09/22/21 00:25 Toxic Granulation Not Reportable 09/22/21 00:25 Toxic Vacuolation Not Reportable 09/22/21 00:25 Dohle Bodies Not Reportable 09/22/21 00:25 Pelger-Huet Anomaly Not Reportable 09/22/21 00:25 Grey Rods Not Reportable 09/22/21 00:25 Platelet Estimate Consistent w auto 09/22/21 00:25 Clumped Platelets Not Reportable 09/22/21 00:25 Plt Clumps, EDTA Not Reportable 09/22/21 00:25 Large Platelets Not Reportable 09/22/21 00:25 Giant Platelets Not Reportable 09/22/21 00:25 Platelet Satelliting Not Reportable 09/22/21 00:25 Plt Morphology Comment Not Reportable 09/22/21 00:25 RBC Morphology Normal 09/22/21 00:25 Dimorphic RBCs Not Reportable 09/22/21 00:25 Polychromasia Not Reportable 09/22/21 00:25 Hypochromasia Not Reportable 09/22/21 00:25 Poikilocytosis Not Reportable 09/22/21 00:25 Anisocytosis Not Reportable 09/22/21 00:25 Microcytosis Not Reportable 09/22/21 00:25 Macrocytosis Not Reportable 09/22/21 00:25 Spherocytes Not Reportable 09/22/21 00:25 Pappenheimer Bodies Not Reportable 09/22/21 00:25 Sickle Cells Not Reportable 09/22/21 00:25 Target Cells Not Reportable 09/22/21 00:25 Tear Drop Cells Not Reportable 09/22/21 00:25 Ovalocytes Not Reportable 09/22/21 00:25 Helmet Cells Not Reportable 09/22/21 00:25 [place] Bodies Not Reportable 09/22/21 00:25 [place] Rings Not Reportable 09/22/21 00:25 Lydia Cells Not Reportable 09/22/21 00:25 Bite Cells Not Reportable 09/22/21 00:25 Crenated Cell Not Reportable 09/22/21 00:25 Elliptocytes Not Reportable 09/22/21 00:25 Acanthocytes (Spur) Not Reportable 09/22/21 00:25 Rouleaux Not Reportable 09/22/21 00:25 Hemoglobin C Crystals Not Reportable 09/22/21 00:25 Schistocytes Not Reportable 09/22/21 00:25 Malaria parasites Not Reportable 09/22/21 00:25 Robe Bodies Not Reportable 09/22/21 00:25 Hem Pathologist Commnt No 09/22/21 00:25 VBG pH 7.048 (7.320-7.420) L* 09/22/21 01:49 Sodium 137 mmol/L (137-145) 09/23/21 05:02 Potassium 3.4 mmol/L (3.6-5.0) L 09/23/21 05:02 Chloride 107.0 mmol/L (98-107) 09/23/21 05:02 Carbon Dioxide 19 mmol/L (22-30) L 09/23/21 05:02 Anion Gap 14 mmol/L 09/23/21 05:02 BUN 12 mg/dL (7-17) 09/23/21 05:02 Creatinine 0.8 mg/dL (0.6-1.2) 09/23/21 05:02 Estimated GFR > 60 ml/min 09/23/21 05:02 BUN/Creatinine Ratio 15 % 09/23/21 05:02 Glucose 102 mg/dL (65-100) H 09/23/21 05:02 POC Glucose 237 mg/dL (70-105) H 09/23/21 21:27 Hemoglobin A1c 7.8 % (4-6) H 09/23/21 05:02 Calcium 8.4 mg/dL (8.4-10.2) 09/23/21 05:02 Phosphorus 1.30 mg/dL (2.5-4.5) L D 09/23/21 05:02 Magnesium 1.80 mg/dL (1.7-2.3) 09/23/21 05:02 Total Bilirubin 0.90 mg/dL (0.1-1.2) 09/22/21 00:25 AST 12 units/L (5-40) 09/22/21 00:25 ALT 13 units/L (7-56) 09/22/21 00:25 Alkaline Phosphatase 137 units/L (35-129) H 09/22/21 00:25 Total Protein 8.6 g/dL (6.3-8.2) H 09/22/21 00:25 Albumin 4.8 g/dL (3.9-5) 09/22/21 00:25 Albumin/Globulin Ratio 1.3 % 09/22/21 00:25 Lipase 7 units/L (13-60) L 09/22/21 00:25 Urine Color Yellow (Yellow) 09/22/21 22:00 Urine Turbidity Clear (Clear) 09/22/21 22:00 Urine pH 6.0 (5.0-7.0) 09/22/21 22:00 Ur Specific [place] 1.015 (1.003-1.030) 09/22/21 22:00 Urine Protein 30 mg/dl mg/dL (Negative) 09/22/21 22:00 Urine Glucose (UA) >=500 mg/dL (Negative) 09/22/21 22:00 Urine Ketones 80 mg/dL (Negative) 09/22/21 22:00 Urine Blood Lg (Negative) 09/22/21 22:00 Urine Nitrite Neg (Negative) 09/22/21 22:00 Urine Bilirubin Neg (Negative) 09/22/21 22:00 Urine Urobilinogen < 2.0 mg/dL (<2.0) 09/22/21 22:00 Ur Leukocyte Esterase Neg (Negative) 09/22/21 22:00 Urine WBC (Auto) 7.0 /HPF (0.0-6.0) H 09/22/21 22:00 Urine RBC (Auto) 1.0 /HPF (0.0-6.0) 09/22/21 22:00 U Epithel Cells (Auto) < 1.0 /HPF (0-13.0) 09/22/21 22:00 Urine Bacteria (Auto) 1+ /HPF (Negative) 09/22/21 22:00 Urine Mucus Few /HPF 09/22/21 22:00 Bravo/IV: Voiding Method Toilet Active Medications - Current Medications Current Medications: Generic Name Dose Route Start Last Admin Trade Name Freq PRN Reason Stop Dose Admin Acetaminophen 650 mg 09/22/21 03:14 Acetaminophen 325 Mg Tab PO Q6H PRN Pain MILD(1-3)/Fever >100.5/MÁRQUEZ Aspirin 81 mg 09/22/21 22:00 09/23/21 21:04 Aspirin 81 Mg Tab Chew PO 81 mg QHS TARUN Administration Calcium Carbonate/Glycine 500 mg 09/23/21 12:00 09/23/21 15:57 Calcium Carbonate 500 Mg Tab Chew PO 500 mg Q4H PRN Administration Indigestion Dextrose 0 ml 09/22/21 02:42 Dextrose 50% In Water (25gm) 50 Ml Syringe IV Q30MIN PRN Hypoglycemia Protocol Famotidine 20 mg 09/22/21 10:00 09/23/21 09:55 Famotidine 20 Mg Tab PO 20 mg QDAY TARUN Administration Insulin Human Isoph/Insulin Regular 25 unit 09/22/21 18:30 09/23/21 17:33 Insulin Nph/Regular 70/30 Inj SUB-Q 25 unit BIDDIAB TARUN Administration Insulin Human Lispro 0 unit 09/22/21 22:00 09/23/21 21:50 Insulin Lispro 100 Unit/Ml SUB-Q 3 unit ACHS TARUN Administration Protocol Lisinopril 40 mg 09/23/21 10:00 09/23/21 09:54 Lisinopril 40 Mg Tab PO 40 mg QDAY TARUN Administration Magnesium Hydroxide 30 ml 09/22/21 03:14 09/22/21 18:19 Magnesium Hydroxide (Mom) Oral Liqd Udc PO 30 ml Q4H PRN Administration Constipation Metoprolol Tartrate 100 mg 09/22/21 22:00 09/23/21 21:04 Metoprolol Tartrate 100 Mg Tab PO 100 mg BID TARUN Administration Morphine Sulfate 2 mg 09/22/21 03:14 Morphine 2 Mg/1 Ml Inj IV Q4H PRN Pain, Moderate (4-6) Ondansetron HCl 4 mg 09/22/21 03:14 Ondansetron 4 Mg/2 Ml Inj IV Q8H PRN Nausea And Vomiting Prasugrel 10 mg 09/22/21 22:00 09/23/21 22:13 Prasugrel 10 Mg Tab PO 10 mg QHS TARUN Administration Pravastatin Sodium 80 mg 09/22/21 22:00 09/23/21 21:04 Pravastatin 80 Mg Tab PO 80 mg QHS TARUN Administration Sodium Chloride 10 ml 09/22/21 10:00 09/23/21 21:04 Sodium Chloride 0.9% 10 Ml Flush Syringe IV 10 ml BID TARUN Administration Sodium Chloride 10 ml 09/22/21 03:14 Sodium Chloride 0.9% 10 Ml Flush Syringe IV PRN PRN LINE FLUSH Nutrition/Malnutrition Assess - Dietary Evaluation Nutrition/Malnutrition Findings: Nutrition Notes Start: 09/22/21 16:51 Freq: Status: Active Protocol: Document 09/22/21 16:51 BASIA (Rec: 09/22/21 17:00 BASIA [id number]) Nutrition Notes Need for Assessment generated from: MD Order,Education Initial or Follow up Brief Note Current Diagnosis Acute Kidney Injury,Coronary Artery Disease,Diabetes, Hypertension,Hyperlipidemia Other Pertinent Diagnosis DKA, Metabolic Acidosis, N/V, GERD. Current Diet NPO (since 09/22 03:18). Height 5 ft 4 in Weight 77.111 kg [place] Body Weight (kg) 54.54 BMI 29.2 Weight change and time frame None provided at admission. Weight Status Overweight Subjective/Other Information RD consult for nutrition education. Pt currently on NPO. Pt is s/p fracture and sprain of R-Ankle w/cast. Pt still in critical condition , not a candidate for Nutrition Education at the time, will assess feasibility on F/U. Percent of energy/protein needs met: Pt currently on NPO. Nutrition Intervention Follow-Up By: 09/26/21 Additional Comments Nutrition education will be provided on F/U, if feasible. When pertinent, start monitoring food tolerance, %PO intake of meals, and BM.
[2021-09-23] MEDS: INSULIN LISPRO 100 UNIT/ML SUB-Q SCH ×4 (13:13→21:50)
[2021-09-23] MEDS: INSULIN NPH/REGULAR 70/30 INJ SUB-Q SCH ×2 (13:13→17:33)
--- NOTE | 2021-09-23 14:08 | Progress Note ---
Assessment and Plan DKA (diabetic ketoacidosis) Metabolic Acidosis Insulin-dependent diabetes mellitus(IDDM) Acute Kidney Injury(PREMA) Vasomotor Nephropathy Hyponatremia Nausea/Vomiting h/o CAD (coronary artery disease) s/p X2 stents in 2016 HTN (hypertension), HLD GERD (Gastroesophageal Reflux Disease) Right Foot Fracture/Right Ankle Sprain -Weight based basal bolus insulin therapy -Steady car diet -Chronic home medications as clinically indicated -VTE prophylaxis- Heparin, the patient also has a cast on the RLExt, making her a moderate risk patient -PPI for GERD -ice cream vault worker consult to help with insulin therapy -Lifestyle modifications -Discussed care with primary service -Updated the nursing staff and the patient re care plan -Can transfer to the floor. -Discharge planning, close outpatient follow up Subjective Date of service: 09/23/21 Interval history: Follow up for DKA; PREMA Seen and examined. Vitals, labs, medications reviewed. She still has some nausea but improved. No adverse overnight events reported. She denies any diarrhea, no fevers, no chills, no vomiting. Off insulin infusion, transitioned to home insulin regimen. Discussed with nursing Objective Vital Signs - 12hr 09/23/21 09/23/21 09/23/21 02:10 02:20 02:30 Temperature Pulse Rate 90 91 H 92 H Pulse Rate [ From Monitor] Pulse Rate [ None] Respiratory 15 14 15 Rate Blood Pressure 130/69 130/69 130/69 O2 Sat by Pulse 100 100 100 Oximetry 09/23/21 09/23/21 09/23/21 02:40 02:50 03:00 Temperature Pulse Rate 93 H 93 H 89 Pulse Rate [ From Monitor] Pulse Rate [ 92 H None] Respiratory 15 15 14 Rate Blood Pressure 130/69 130/69 121/77 O2 Sat by Pulse 100 100 100 Oximetry 09/23/21 09/23/21 09/23/21 03:10 03:20 03:30 Temperature Pulse Rate 93 H 95 H 93 H Pulse Rate [ From Monitor] Pulse Rate [ None] Respiratory 14 11 L 14 Rate Blood Pressure 121/77 121/77 121/77 O2 Sat by Pulse 100 100 100 Oximetry 09/23/21 09/23/21 09/23/21 03:40 03:50 04:00 Temperature Pulse Rate 92 H 90 91 H Pulse Rate [ 90 From Monitor] Pulse Rate [ 91 H None] Respiratory 11 L 15 14 Rate Blood Pressure 121/77 121/77 129/68 O2 Sat by Pulse 100 100 100 Oximetry 09/23/21 09/23/21 09/23/21 04:10 04:20 04:30 Temperature Pulse Rate 91 H 90 91 H Pulse Rate [ From Monitor] Pulse Rate [ None] Respiratory 16 15 14 Rate Blood Pressure 129/68 129/68 129/68 O2 Sat by Pulse 100 100 100 Oximetry 09/23/21 09/23/21 09/23/21 04:40 05:00 05:10 Temperature Pulse Rate 97 H 92 H 88 Pulse Rate [ From Monitor] Pulse Rate [ None] Respiratory 14 14 15 Rate Blood Pressure 129/68 129/68 129/68 O2 Sat by Pulse 99 100 100 Oximetry 09/23/21 09/23/21 09/23/21 05:20 05:30 05:40 Temperature Pulse Rate 88 86 92 H Pulse Rate [ From Monitor] Pulse Rate [ None] Respiratory 15 14 20 Rate Blood Pressure 129/68 129/68 129/68 O2 Sat by Pulse 100 100 100 Oximetry 09/23/21 09/23/21 09/23/21 05:50 06:00 06:10 Temperature Pulse Rate 85 88 89 Pulse Rate [ From Monitor] Pulse Rate [ 87 None] Respiratory 14 15 14 Rate Blood Pressure 129/68 120/70 120/70 O2 Sat by Pulse 100 100 100 Oximetry 09/23/21 09/23/21 09/23/21 06:20 06:30 06:40 Temperature Pulse Rate 86 89 88 Pulse Rate [ From Monitor] Pulse Rate [ None] Respiratory 14 14 15 Rate Blood Pressure 120/70 120/70 120/70 O2 Sat by Pulse 100 100 100 Oximetry 09/23/21 09/23/21 09/23/21 06:50 07:00 07:10 Temperature Pulse Rate 86 98 H 89 Pulse Rate [ From Monitor] Pulse Rate [ None] Respiratory 14 19 12 Rate Blood Pressure 120/70 120/70 120/70 O2 Sat by Pulse 100 100 Oximetry 09/23/21 09/23/21 09/23/21 07:20 07:30 07:40 Temperature Pulse Rate 87 86 87 Pulse Rate [ From Monitor] Pulse Rate [ None] Respiratory 15 14 14 Rate Blood Pressure 120/70 120/70 120/70 O2 Sat by Pulse 100 100 100 Oximetry 09/23/21 09/23/2122 07:50 08:00 08:01 Temperature 98.1 F Pulse Rate 92 H 91 H 94 H Pulse Rate [ 94 H From Monitor] Pulse Rate [ None] Respiratory 16 18 19 Rate Blood Pressure 120/70 150/81 O2 Sat by Pulse 100 100 100 Oximetry 09/23/21 09/23/21 09/23/21 08:10 08:20 08:30 Temperature Pulse Rate 95 H 96 H 97 H Pulse Rate [ From Monitor] Pulse Rate [ None] Respiratory 13 17 17 Rate Blood Pressure 150/81 150/81 150/81 O2 Sat by Pulse 100 100 99 Oximetry 09/23/21 09/23/21 09/23/21 08:40 08:50 09:00 Temperature Pulse Rate 95 H 92 H 93 H Pulse Rate [ From Monitor] Pulse Rate [ None] Respiratory 15 17 15 Rate Blood Pressure 150/81 150/81 134/70 O2 Sat by Pulse 100 100 100 Oximetry 09/23/21 09/23/21 09/23/21 09:10 09:20 09:30 Temperature Pulse Rate 89 88 87 Pulse Rate [ From Monitor] Pulse Rate [ None] Respiratory 17 17 11 L Rate Blood Pressure 134/70 134/70 134/70 O2 Sat by Pulse 100 100 100 Oximetry 09/23/21 09/23/21 09/23/21 09:40 09:50 09:54 Temperature Pulse Rate 87 86 87 Pulse Rate [ From Monitor] Pulse Rate [ None] Respiratory 13 16 Rate Blood Pressure 134/70 134/70 134/70 O2 Sat by Pulse 99 100 Oximetry 09/23/21 09/23/21 09/23/21 10:00 10:10 10:20 Temperature Pulse Rate 87 86 83 Pulse Rate [ From Monitor] Pulse Rate [ None] Respiratory 16 15 16 Rate Blood Pressure 132/73 132/73 132/73 O2 Sat by Pulse 100 100 100 Oximetry 09/23/21 09/23/21 09/23/21 10:30 10:40 10:50 Temperature Pulse Rate 85 85 85 Pulse Rate [ From Monitor] Pulse Rate [ None] Respiratory 15 15 17 Rate Blood Pressure 132/73 132/73 132/73 O2 Sat by Pulse 100 100 100 Oximetry 09/23/21 11:23 Temperature 98.6 F Pulse Rate 85 Pulse Rate [ From Monitor] Pulse Rate [ None] Respiratory 20 Rate Blood Pressure 123/76 O2 Sat by Pulse 99 Oximetry Constitutional: no acute distress, alert Eyes: non-icteric ENT: oropharynx moist Neck: supple, no lymphadenopathy Effort: normal Ascultation: Bilateral: clear Cardiovascular: regular rate and rhythm Gastrointestinal: normoactive bowel sounds, soft, non-tender, non-distended Integumentary: normal, other (RLExt cast) Extremities: no cyanosis, no edema Neurologic: normal mental status, non-focal exam Psychiatric: mood appropriate, affect normal CBC and BMP: 09/24/21 06:56 09/25/21 06:37 Abnormal lab findings: Abnormal Labs 09/21/21 09/22/21 09/22/21 23:36 00:25 00:25 WBC 18.9 H Hct 44.0 H Lymph % (Auto) [place] % (Auto) [place] # (Auto) Seg Neutrophils % Seg Neuts % (Manual) 95.0 H Lymphocytes % (Manual) 2.0 L Seg Neutrophils # Seg Neutrophils # Man 18.0 H Lymphocytes # (Manual) 0.4 L VBG pH Sodium 133 L Potassium Chloride 92.9 L Carbon Dioxide 8 L* BUN 32 H Creatinine 1.3 H Glucose 589 H* POC Glucose 498 H Hemoglobin A1c Calcium Phosphorus Magnesium Alkaline Phosphatase 137 H Total Protein 8.6 H Lipase Urine WBC (Auto) 09/22/21 09/22/21 09/22/21 00:25 01:49 02:54 WBC Hct Lymph % (Auto) [place] % (Auto) [place] # (Auto) Seg Neutrophils % Seg Neuts % (Manual) Lymphocytes % (Manual) Seg Neutrophils # Seg Neutrophils # Man Lymphocytes # (Manual) VBG pH 7.048 L* Sodium Potassium Chloride Carbon Dioxide BUN Creatinine Glucose POC Glucose Hemoglobin A1c Calcium Phosphorus Magnesium 2.50 H Alkaline Phosphatase Total Protein Lipase 7 L Urine WBC (Auto) 09/22/21 09/22/21 09/22/21 02:54 04:04 04:54 WBC Hct Lymph % (Auto) [place] % (Auto) [place] # (Auto) Seg Neutrophils % Seg Neuts % (Manual) Lymphocytes % (Manual) Seg Neutrophils # Seg Neutrophils # Man Lymphocytes # (Manual) VBG pH Sodium Potassium Chloride Carbon Dioxide 10 L BUN 31 H Creatinine 1.3 H Glucose 473 H POC Glucose 454 H 431 H Hemoglobin A1c Calcium Phosphorus Magnesium Alkaline Phosphatase Total Protein Lipase Urine WBC (Auto) 09/22/21 09/22/21 09/22/21 06:05 06:58 08:07 WBC Hct Lymph % (Auto) [place] % (Auto) [place] # (Auto) Seg Neutrophils % Seg Neuts % (Manual) Lymphocytes % (Manual) Seg Neutrophils # Seg Neutrophils # Man Lymphocytes # (Manual) VBG pH Sodium Potassium Chloride Carbon Dioxide BUN Creatinine Glucose POC Glucose 379 H 297 H 272 H Hemoglobin A1c Calcium Phosphorus Magnesium Alkaline Phosphatase Total Protein Lipase Urine WBC (Auto) 09/22/21 09/22/21 09/22/21 09:06 09:12 10:02 WBC Hct Lymph % (Auto) [place] % (Auto) [place] # (Auto) Seg Neutrophils % Seg Neuts % (Manual) Lymphocytes % (Manual) Seg Neutrophils # Seg Neutrophils # Man Lymphocytes # (Manual) VBG pH Sodium Potassium Chloride 112.9 H Carbon Dioxide 11 L BUN 23 H Creatinine Glucose 225 H POC Glucose 196 H 230 H Hemoglobin A1c Calcium 7.9 L Phosphorus Magnesium Alkaline Phosphatase Total Protein Lipase Urine WBC (Auto) 09/22/21 09/22/21 09/22/21 11:11 11:53 13:17 WBC Hct Lymph % (Auto) [place] % (Auto) [place] # (Auto) Seg Neutrophils % Seg Neuts % (Manual) Lymphocytes % (Manual) Seg Neutrophils # Seg Neutrophils # Man Lymphocytes # (Manual) VBG pH Sodium Potassium Chloride Carbon Dioxide BUN Creatinine Glucose POC Glucose 202 H 203 H 147 H Hemoglobin A1c Calcium Phosphorus Magnesium Alkaline Phosphatase Total Protein Lipase Urine WBC (Auto) 09/22/21 09/22/21 09/22/21 14:12 15:03 16:00 WBC Hct Lymph % (Auto) [place] % (Auto) [place] # (Auto) Seg Neutrophils % Seg Neuts % (Manual) Lymphocytes % (Manual) Seg Neutrophils # Seg Neutrophils # Man Lymphocytes # (Manual) VBG pH Sodium Potassium 3.3 L D Chloride 112.6 H Carbon Dioxide 16 L BUN 18 H Creatinine Glucose 192 H POC Glucose 160 H 169 H Hemoglobin A1c Calcium 7.8 L Phosphorus 0.50 L* D Magnesium Alkaline Phosphatase Total Protein Lipase Urine WBC (Auto) 09/22/21 09/22/21 09/22/21 16:10 17:22 18:06 WBC Hct Lymph % (Auto) [place] % (Auto) [place] # (Auto) Seg Neutrophils % Seg Neuts % (Manual) Lymphocytes % (Manual) Seg Neutrophils # Seg Neutrophils # Man Lymphocytes # (Manual) VBG pH Sodium Potassium Chloride Carbon Dioxide BUN Creatinine Glucose POC Glucose 167 H 155 H 154 H Hemoglobin A1c Calcium Phosphorus Magnesium Alkaline Phosphatase Total Protein Lipase Urine WBC (Auto) 09/22/21 09/22/21 09/22/21 19:05 19:52 21:58 WBC Hct Lymph % (Auto) [place] % (Auto) [place] # (Auto) Seg Neutrophils % Seg Neuts % (Manual) Lymphocytes % (Manual) Seg Neutrophils # Seg Neutrophils # Man Lymphocytes # (Manual) VBG pH Sodium Potassium Chloride Carbon Dioxide BUN Creatinine Glucose POC Glucose 170 H 161 H 192 H Hemoglobin A1c Calcium Phosphorus Magnesium Alkaline Phosphatase Total Protein Lipase Urine WBC (Auto) 09/22/21 09/23/21 09/23/21 22:00 05:02 05:02 WBC 17.8 H Hct Lymph % (Auto) 7.6 L [place] % (Auto) 8.7 H [place] # (Auto) 1.5 H Seg Neutrophils % 83.5 H Seg Neuts % (Manual) Lymphocytes % (Manual) Seg Neutrophils # 14.9 H Seg Neutrophils # Man Lymphocytes # (Manual) VBG pH Sodium Potassium 3.4 L Chloride Carbon Dioxide 19 L BUN Creatinine Glucose 102 H POC Glucose Hemoglobin A1c Calcium Phosphorus Magnesium Alkaline Phosphatase Total Protein Lipase Urine WBC (Auto) 7.0 H 09/23/21 09/23/21 09/23/21 05:02 05:02 07:53 WBC Hct Lymph % (Auto) [place] % (Auto) [place] # (Auto) Seg Neutrophils % Seg Neuts % (Manual) Lymphocytes % (Manual) Seg Neutrophils # Seg Neutrophils # Man Lymphocytes # (Manual) VBG pH Sodium Potassium Chloride Carbon Dioxide BUN Creatinine Glucose POC Glucose 127 H Hemoglobin A1c 7.8 H Calcium Phosphorus 1.30 L D Magnesium Alkaline Phosphatase Total Protein Lipase Urine WBC (Auto) Allied health notes reviewed: nursing
[2021-09-23] MEDS: CALCIUM CARBONATE 500 MG TAB CHEW PO PRN (15:57)
[2021-09-23] MEDS: PRAVASTATIN 80 MG TAB PO SCH (21:04)
[2021-09-23] MEDS: ASPIRIN 81 MG TAB CHEW PO SCH (21:04)
[2021-09-23] MEDS: PRASUGREL 10 MG TAB PO SCH (22:13)
[2021-09-24 07:26] LABS: Hematocrit 33.1 % (30.3-42.9); Mean Corpuscular HGB Conc 33 % (30-34); Mean Corpuscular Volume 93 fl (79-97); Platelet Count 205 K/mm3 (140-440); Red Blood Count 3.54 M/mm3 (3.65-5.03); Red Cell Distribution Width 14.8 % (13.2-15.2)
[2021-09-24] MEDS: INSULIN LISPRO 100 UNIT/ML SUB-Q SCH ×4 (08:28→23:50)
[2021-09-24] MEDS: INSULIN NPH/REGULAR 70/30 INJ SUB-Q SCH ×2 (08:28→18:55)
[2021-09-24] MEDS: CALCIUM CARBONATE 500 MG TAB CHEW PO PRN ×2 (08:30→21:46)
[2021-09-24 08:34] LABS: Blood Urea Nitrogen 12 mg/dL (7-17); Calcium 8.8 mg/dL (8.4-10.2); Hemolysis Index 0
[2021-09-24 08:39] LABS: BUN/Creatinine Ratio 20
[2021-09-24] MEDS: METOPROLOL TARTRATE 100 MG TAB PO SCH ×2 (09:07→21:58)
[2021-09-24] MEDS: FAMOTIDINE 20 MG TAB PO SCH (09:07)
[2021-09-24] MEDS: LISINOPRIL 40 MG TAB PO SCH (09:08)
--- NOTE | 2021-09-24 14:18 | Progress Note ---
Assessment and Plan DKA (diabetic ketoacidosis) Metabolic Acidosis Insulin-dependent diabetes mellitus(IDDM) Acute Kidney Injury(PREMA) Vasomotor Nephropathy Hyponatremia Nausea/Vomiting h/o CAD (coronary artery disease) s/p X2 stents in 2016 HTN (hypertension), HLD GERD (Gastroesophageal Reflux Disease) Right Foot Fracture/Right Ankle Sprain -Weight based basal bolus insulin therapy -Steady carb diet, Accucheck with glycemic control Target blood glucose 140-180 mg/dL, avoid hypoglycemia -Chronic home medications as clinically indicated -VTE prophylaxis- Heparin, the patient also has a cast on the RLExt, making her a moderate risk patient -PPI for GERD -gospel worker consult to help with insulin therapy -Lifestyle modifications -Updated the nursing staff and the patient re care plan -Discharge planning, close outpatient follow up Subjective Date of service: 09/24/21 Interval history: Follow up for DKA; PREMA Seen and examined. Vitals, labs, medications reviewed. No adverse overnight events reported. She denies any diarrhea, no fevers, no chills, no vomiting. On home insulin regimen Discussed with nursing Objective Vital Signs - 12hr 09/24/21 09/24/21 04:39 12:04 Temperature 98.0 F 98.6 F Pulse Rate 76 80 Respiratory 16 22 Rate Blood Pressure 141/77 161/92 O2 Sat by Pulse 100 98 Oximetry Constitutional: no acute distress, alert Eyes: non-icteric ENT: oropharynx moist Neck: supple, no lymphadenopathy Effort: normal Ascultation: Bilateral: clear Cardiovascular: regular rate and rhythm Gastrointestinal: normoactive bowel sounds, soft, non-tender, non-distended Integumentary: normal, other (RLExt cast) Extremities: no cyanosis, no edema Neurologic: normal mental status, non-focal exam Psychiatric: mood appropriate, affect normal CBC and BMP: 09/24/21 06:56 09/25/21 06:37 Abnormal lab findings: Abnormal Labs 09/21/21 09/22/21 09/22/21 23:36 00:25 00:25 WBC 18.9 H RBC Hct 44.0 H Lymph % (Auto) [place] % (Auto) [place] # (Auto) Seg Neutrophils % Seg Neuts % (Manual) 95.0 H Lymphocytes % (Manual) 2.0 L Seg Neutrophils # Seg Neutrophils # Man 18.0 H Lymphocytes # (Manual) 0.4 L VBG pH Sodium 133 L Potassium Chloride 92.9 L Carbon Dioxide 8 L* BUN 32 H Creatinine 1.3 H Glucose 589 H* POC Glucose 498 H Hemoglobin A1c Calcium Phosphorus Magnesium Alkaline Phosphatase 137 H Total Protein 8.6 H Lipase Urine WBC (Auto) 09/22/21 09/22/21 09/22/21 00:25 01:49 02:54 WBC RBC Hct Lymph % (Auto) [place] % (Auto) [place] # (Auto) Seg Neutrophils % Seg Neuts % (Manual) Lymphocytes % (Manual) Seg Neutrophils # Seg Neutrophils # Man Lymphocytes # (Manual) VBG pH 7.048 L* Sodium Potassium Chloride Carbon Dioxide BUN Creatinine Glucose POC Glucose Hemoglobin A1c Calcium Phosphorus Magnesium 2.50 H Alkaline Phosphatase Total Protein Lipase 7 L Urine WBC (Auto) 09/22/21 09/22/21 09/22/21 02:54 04:04 04:54 WBC RBC Hct Lymph % (Auto) [place] % (Auto) [place] # (Auto) Seg Neutrophils % Seg Neuts % (Manual) Lymphocytes % (Manual) Seg Neutrophils # Seg Neutrophils # Man Lymphocytes # (Manual) VBG pH Sodium Potassium Chloride Carbon Dioxide 10 L BUN 31 H Creatinine 1.3 H Glucose 473 H POC Glucose 454 H 431 H Hemoglobin A1c Calcium Phosphorus Magnesium Alkaline Phosphatase Total Protein Lipase Urine WBC (Auto) 09/22/21 09/22/21 09/22/21 06:05 06:58 08:07 WBC RBC Hct Lymph % (Auto) [place] % (Auto) [place] # (Auto) Seg Neutrophils % Seg Neuts % (Manual) Lymphocytes % (Manual) Seg Neutrophils # Seg Neutrophils # Man Lymphocytes # (Manual) VBG pH Sodium Potassium Chloride Carbon Dioxide BUN Creatinine Glucose POC Glucose 379 H 297 H 272 H Hemoglobin A1c Calcium Phosphorus Magnesium Alkaline Phosphatase Total Protein Lipase Urine WBC (Auto) 09/22/21 09/22/21 09/22/21 09:06 09:12 10:02 WBC RBC Hct Lymph % (Auto) [place] % (Auto) [place] # (Auto) Seg Neutrophils % Seg Neuts % (Manual) Lymphocytes % (Manual) Seg Neutrophils # Seg Neutrophils # Man Lymphocytes # (Manual) VBG pH Sodium Potassium Chloride 112.9 H Carbon Dioxide 11 L BUN 23 H Creatinine Glucose 225 H POC Glucose 196 H 230 H Hemoglobin A1c Calcium 7.9 L Phosphorus Magnesium Alkaline Phosphatase Total Protein Lipase Urine WBC (Auto) 04/09/22/21 09/22/21 11:11 11:53 13:17 WBC RBC Hct Lymph % (Auto) [place] % (Auto) [place] # (Auto) Seg Neutrophils % Seg Neuts % (Manual) Lymphocytes % (Manual) Seg Neutrophils # Seg Neutrophils # Man Lymphocytes # (Manual) VBG pH Sodium Potassium Chloride Carbon Dioxide BUN Creatinine Glucose POC Glucose 202 H 203 H 147 H Hemoglobin A1c Calcium Phosphorus Magnesium Alkaline Phosphatase Total Protein Lipase Urine WBC (Auto) 09/22/21 09/22/21 09/22/21 14:12 15:03 16:00 WBC RBC Hct Lymph % (Auto) [place] % (Auto) [place] # (Auto) Seg Neutrophils % Seg Neuts % (Manual) Lymphocytes % (Manual) Seg Neutrophils # Seg Neutrophils # Man Lymphocytes # (Manual) VBG pH Sodium Potassium 3.3 L D Chloride 112.6 H Carbon Dioxide 16 L BUN 18 H Creatinine Glucose 192 H POC Glucose 160 H 169 H Hemoglobin A1c Calcium 7.8 L Phosphorus 0.50 L* D Magnesium Alkaline Phosphatase Total Protein Lipase Urine WBC (Auto) 09/22/21 09/22/21 09/22/21 16:10 17:22 18:06 WBC RBC Hct Lymph % (Auto) [place] % (Auto) [place] # (Auto) Seg Neutrophils % Seg Neuts % (Manual) Lymphocytes % (Manual) Seg Neutrophils # Seg Neutrophils # Man Lymphocytes # (Manual) VBG pH Sodium Potassium Chloride Carbon Dioxide BUN Creatinine Glucose POC Glucose 167 H 155 H 154 H Hemoglobin A1c Calcium Phosphorus Magnesium Alkaline Phosphatase Total Protein Lipase Urine WBC (Auto) 09/22/21 09/22/21 09/22/21 19:05 19:52 21:58 WBC RBC Hct Lymph % (Auto) [place] % (Auto) [place] # (Auto) Seg Neutrophils % Seg Neuts % (Manual) Lymphocytes % (Manual) Seg Neutrophils # Seg Neutrophils # Man Lymphocytes # (Manual) VBG pH Sodium Potassium Chloride Carbon Dioxide BUN Creatinine Glucose POC Glucose 170 H 161 H 192 H Hemoglobin A1c Calcium Phosphorus Magnesium Alkaline Phosphatase Total Protein Lipase Urine WBC (Auto) 09/22/21 09/23/21 09/23/21 22:00 05:02 05:02 WBC 17.8 H RBC Hct Lymph % (Auto) 7.6 L [place] % (Auto) 8.7 H [place] # (Auto) 1.5 H Seg Neutrophils % 83.5 H Seg Neuts % (Manual) Lymphocytes % (Manual) Seg Neutrophils # 14.9 H Seg Neutrophils # Man Lymphocytes # (Manual) VBG pH Sodium Potassium 3.4 L Chloride Carbon Dioxide 19 L BUN Creatinine Glucose 102 H POC Glucose Hemoglobin A1c Calcium Phosphorus Magnesium Alkaline Phosphatase Total Protein Lipase Urine WBC (Auto) 7.0 H 09/23/21 09/23/21 09/23/21 05:02 05:02 07:53 WBC RBC Hct Lymph % (Auto) [place] % (Auto) [place] # (Auto) Seg Neutrophils % Seg Neuts % (Manual) Lymphocytes % (Manual) Seg Neutrophils # Seg Neutrophils # Man Lymphocytes # (Manual) VBG pH Sodium Potassium Chloride Carbon Dioxide BUN Creatinine Glucose POC Glucose 127 H Hemoglobin A1c 7.8 H Calcium Phosphorus 1.30 L D Magnesium Alkaline Phosphatase Total Protein Lipase Urine WBC (Auto) 09/23/21 09/23/21 09/23/21 11:21 17:08 21:27 WBC RBC Hct Lymph % (Auto) [place] % (Auto) [place] # (Auto) Seg Neutrophils % Seg Neuts % (Manual) Lymphocytes % (Manual) Seg Neutrophils # Seg Neutrophils # Man Lymphocytes # (Manual) VBG pH Sodium Potassium Chloride Carbon Dioxide BUN Creatinine Glucose POC Glucose 253 H 299 H 237 H Hemoglobin A1c Calcium Phosphorus Magnesium Alkaline Phosphatase Total Protein Lipase Urine WBC (Auto) 09/24/21 09/24/21 09/24/21 06:56 06:56 07:56 WBC RBC 3.54 L Hct Lymph % (Auto) [place] % (Auto) [place] # (Auto) Seg Neutrophils % Seg Neuts % (Manual) Lymphocytes % (Manual) Seg Neutrophils # Seg Neutrophils # Man Lymphocytes # (Manual) VBG pH Sodium Potassium Chloride Carbon Dioxide 20 L BUN Creatinine Glucose 43 L POC Glucose 60 L Hemoglobin A1c Calcium Phosphorus 2.30 L D Magnesium Alkaline Phosphatase Total Protein Lipase Urine WBC (Auto)
--- NOTE | 2021-09-24 17:40 | Progress Note ---
Assessment and Plan This is a 46-year-old female with known past medical history of IDDM, HTN, HLD, GA, and CAD s/p X2 stents admitted for DKA. Hospital Course to Date: 09/22: Patient was seen and examined at the bedside. Fully AAO, on RA. On insulin gtt per DKA protocol. Anion gap and BG are still elevated this am. Orders placed for additional IVF boluses administered and Bcarb. Continue DKA protocol and serial labs until gap is closed. Plan of care discussed with the patient at the bedside. She voiced that she ran out of insulin X3days ago, unable to afford meds due to financial issues. She is current not working due to RLE fracture sustained at work. Case management consulted for possible resources and aide with medications after discharge. All questions and concerns were voiced at this time. Patient verbalized understanding and agreement to current plan of care. 09/23: Patient transitioned to subQ insulin overnight. Home bsal insulin regimen resumed, patient is tolerating diet. Patient is stable for transfer to the floor. Discharge planning, case management is following. 09/24: BG at 60s this am, per pt does not have good appetite yet. will reduce NPH dose to 15unit BID. She takes NPH 45 units in the am and 26units at night at home. Low BG likely from poor oral intake. cont to monitor. PT eval Assessment and Plan #DKA (diabetic ketoacidosis) #Metabolic Acidosis #Insulin-dependent diabetes mellitus(IDDM) - Ran out of insulin 3days ago, unable to afford meds due to financial issues - Presented in anion gap,metabolic acidosis - S/p DKA protcol - Transitioned to SubQ insulin overnight - Patient is tolerating diet - Home insulin regimen resumed - Continue BG check and SSI [facility] - Basal-70/30 BID - Avoid Hypoglycemia #Acute Kidney Injury(PREMA) Vasomotor Nephropathy #Hyponatremia - most likely related to DKA/Dehydration - Renal function normalized post IVF hydration - Strict intake and output - Avoid nephrotoxic medications; Renally dose medications - Monitor and replace electrolytes as needed #Nausea/Vomiting-resolved - C/o of nausea and vomiting X2 days - Resolved since admit, most likely due to DKA - PRN antiemetic for N/V #CAD (coronary artery disease) s/p X2 stents in 2016 #HTN (hypertension), HLD - Home medications reconcile - BP currently stable - Continue blood pressure monitor per protocol - Maintain SBP less than 160 - Per patient last GA and stents placement was in 2016, currently has not follow up with a conveyancer since - Patient might benefit from a Cardio referral outpatient for further management. #GERD (Gastroesophageal Reflux Disease) - PPI- Pepcid - PRN Calcium carbonate added for indigestion #Right Foot Fracture #Right Ankle Sprain - Recent fracture of the right foot and sprain of right ankle while at work - Cast present on the right lower extremity - Per patient F/U to Ortho on Sunday for possible Cast removal #GI/DVT prophylaxis - PPI- Pepcid - SCDs to bilateral lower extremities while in bed Subjective Date of service: 09/24/21 Interval history: Patient seen and examined. Medical records and medication list reviewed. No acute event overnight noted by the RN. Patient denies any chest pain or difficulty breathing. Patient is tolerating diet but poor appetite . BG at 60s this am Discussed plan of care at bedside with patient. Objective - Exam Narrative Exam: GENERAL: well-developed and obese WF lying on bed appeared to be in no discomfort. HEENT: Normocephalic. Atraumatic. No conjunctival congestion or icterus. Patient has moist mucous membranes. NECK: Supple. Trachea midline. CHEST/LUNGS: Clear to auscultated bilaterally, breathing nonlabored. No wheezes crackles or rhonchi. HEART/CARDIOVASCULAR: Regular in rate and rhythm. S1 and S2 positive. ABDOMEN: Abdomen is soft, nontender. Patient has normal bowel sounds. SKIN: There is no rash. Warm and dry. NEURO: No focal motor deficit. Follows command. MUSCULOSKELETAL: No joint effusion or tenderness. EXTRIMITY: No edema, no cyanosis or clubbing. PSYCH: Cooperative. - Constitutional Vitals: Vital Signs - 12hr 09/24/21 09/24/21 12:04 16:49 Temperature 98.6 F 99.2 F Pulse Rate 80 75 Respiratory 22 22 Rate Blood Pressure 161/92 151/77 O2 Sat by Pulse 98 100 Oximetry - Labs CBC & Chem 7: 09/24/21 06:56 09/24/21 06:56 Labs: Abnormal lab results 09/23/21 09/24/21 09/24/21 Range/Units 21:27 06:56 06:56 RBC 3.54 L (3.65-5.03) M/mm3 Carbon Dioxide 20 L (22-30) mmol/L Glucose 43 L (65-100) mg/dL POC Glucose 237 H (70-105) mg/dL Phosphorus 2.30 L D (2.5-4.5) mg/dL 09/24/21 Range/Units 07:56 RBC (3.65-5.03) M/mm3 Carbon Dioxide (22-30) mmol/L Glucose (65-100) mg/dL POC Glucose 60 L (70-105) mg/dL Phosphorus (2.5-4.5) mg/dL
[2021-09-24] MEDS ORDERED: POTASSIUM PHOSPHATE 30 MMOL in SODIUM CHLORIDE 0.9% 500 ML 500 ML IV ONE (18:00)
[2021-09-24] MEDS: PRASUGREL 10 MG TAB PO SCH (21:45)
[2021-09-24] MEDS: PRAVASTATIN 80 MG TAB PO SCH (21:45)
[2021-09-24] MEDS: ASPIRIN 81 MG TAB CHEW PO SCH (21:48)
[2021-09-25] MEDS: INSULIN LISPRO 100 UNIT/ML SUB-Q SCH (07:05)
[2021-09-25 07:16] LABS: Blood Urea Nitrogen 13 mg/dL (7-17); Calcium 8.4 mg/dL (8.4-10.2); Hemolysis Index 0
[2021-09-25 07:19] LABS: BUN/Creatinine Ratio 26
--- NOTE | 2021-09-25 11:01 | Discharge Summary ---
Providers - Providers Date of Admission: 09/22/21 03:14 Date of discharge: 09/25/21 Attending physician: JOSE CHAUHAN 09/22/21 03:14 Consult to Dietitian/Nutrition [CONS] Routine Physician Instructions: Reason For Exam: Reason for Consult: Diet education Consult to Physician [CONS] Routine Comment: Consulting Provider: JAGJIT BARBOSA Physician Instructions: Reason For Exam: DKA- ON INSULIN DRIP 09/25/21 05:58 Physical Therapy Evaluation and Treat [CONS] Routine Comment: Reason For Exam: Debility Primary care physician: DREW WALKER Hospitalization Condition: Stable Hospital course: 09/22: Patient was seen and examined at the bedside. Fully AAO, on RA. On insulin gtt per DKA protocol. Anion gap and BG are still elevated this am. Orders placed for additional IVF boluses administered and Bcarb. Continue DKA protocol and serial labs until gap is closed. Plan of care discussed with the patient at the bedside. She voiced that she ran out of insulin X3days ago, unable to afford meds due to financial issues. She is current not working due to RLE fracture sustained at work. Case management consulted for possible resources and aide with medications after discharge. All questions and concerns were voiced at this time. Patient verbalized understanding and agreement to current plan of care. 09/23: Patient transitioned to subQ insulin overnight. Home bsal insulin regimen resumed, patient is tolerating diet. Patient is stable for transfer to the floor. Discharge planning, case management is following. 09/24: BG at 60s this am, per pt does not have good appetite yet. will reduce NPH dose to 15unit BID. She takes NPH 45 units in the am and 26units at night at home. Low BG likely from poor oral intake. cont to monitor. PT eval 09/25 patient is alert and oriented and wants to go home. She offers no specific complaints and feels well. She denies any nausea or vomiting or abdominal pain. We will refill all her medications Assessment and Plan #DKA (diabetic ketoacidosis) #Metabolic Acidosis #Insulin-dependent diabetes mellitus(IDDM) - Ran out of insulin 3days ago, unable to afford meds due to financial issues - Presented in anion gap,metabolic acidosis - S/p DKA protcol - Patient is tolerating diet - Home insulin regimen resumed - Basal-70/30 BID #Acute Kidney Injury(PREMA) Vasomotor Nephropathy Improved #Hyponatremia Resolved - most likely related to DKA/Dehydration - #Nausea/Vomiting-resolved #CAD (coronary artery disease) s/p X2 stents in 2015 Continue home medication Patient was advised to follow-up with cardiology #HTN (hypertension), HLD - Home medications reconcile - BP currently stable - Per patient last KS and stents placement was in 2015, currently has not follow up with a lime slaker since #GERD (Gastroesophageal Reflux Disease) Pepcid twice daily - #Right Foot Fracture #Right Ankle Sprain - Recent fracture of the right foot and sprain of right ankle while at work - Cast present on the right lower extremity - Per patient F/U with traffic operator on Sunday for possible Cast removal Disposition: 01 HOME / SELF CARE / HOMELESS Final Discharge Diagnosis (Prints w/discharge instructions): DKA Time spent for discharge: 38 min Core Measure Documentation - Palliative Care Palliative Care/ Comfort Measures: Not Applicable - Core Measures Any of the following diagnoses?: none Exam - Constitutional Vitals: Temp Pulse Resp BP Pulse Ox 98.5 F 79 20 156/87 98 09/25/21 05:50 09/25/21 05:50 09/25/21 05:50 09/25/21 05:50 09/25/21 05:50 General appearance: Present: no acute distress, well-nourished - EENT Eyes: Present: PERRL, EOM intact ENT: hearing intact, clear oral mucosa - Neck Neck: Present: supple, normal ROM - Respiratory Respiratory effort: normal Respiratory: bilateral: CTA - Cardiovascular Rhythm: regular Heart Sounds: Present: S1 & S2 - Extremities Extremities: No edema (Right foot in POB cast) - Abdominal General gastrointestinal: Present: soft, non-tender Female genitourinary: Present: deferred - Rectal Rectal Exam: deferred - Integumentary Integumentary: Present: clear - Musculoskeletal Musculoskeletal: strength equal bilaterally - Psychiatric Psychiatric: appropriate mood/affect - Neurologic Neurologic: no focal deficits Plan Activity: advance as tolerated Weight Bearing Status: Weight Bear as Tolerated Diet: regular, low fat, low cholesterol, low salt, diabetic Care Plan Goals: Patient will need an outpatient referral with a lime slaker for further management. KS with X2 stents place in 2015, has not follow up with a lime slaker since. Follow up with: DREW WALKER MD [Primary Care Provider] - 3-5 Days MARICRUZ ROBERT MD [Staff Physician] - 7 Days Prescriptions: Aspirin [Aspirin BABY CHEW TAB] 81 mg PO QHS #30 tab.chew Prasugrel [Effient] 10 mg PO QHS #30 tablet Metoprolol [Lopressor TAB] 100 mg PO BID #60 tablet Insulin NPH/Regular [NovoLIN 70/30] 25 unit SUB-Q BID #10 ml Famotidine [Pepcid] 20 mg PO QDAY #30 tablet Pravastatin [Pravachol] 80 mg PO QHS #30 tablet lisinopriL [Zestril TAB] 40 mg PO QDAY #30 tablet
[2021-09-25 11:56] VITALS: BP 149/83
[2021-09-25] MEDS: INSULIN NPH/REGULAR 70/30 INJ SUB-Q SCH (11:57)
[2021-09-25] MEDS: METOPROLOL TARTRATE 100 MG TAB PO SCH (11:58)
[2021-09-25] MEDS: LISINOPRIL 40 MG TAB PO SCH (11:58)
[2021-09-25] MEDS: FAMOTIDINE 20 MG TAB PO SCH (11:59)
[2021-09-25] MEDS ORDERED: ENOXAPARIN 40 MG/0.4 ML INJ SUB-Q SCH (22:00)
== END 2021-09-25 13:30 | disposition home or self-care (01) | DRG 637 ==
LOC: ED 21:26 → CC1 09-22 03:14 → 3A 09-23 12:00
PROVIDERS: ADMIT Internal Medicine Geriatric Medicine; ATTEND Internal Medicine
DX: E11.10 Type 2 diabetes mellitus with ketoacidosis without coma (principal); N17.0 Acute kidney failure with tubular necrosis; E87.1 Hypo-osmolality and hyponatremia; E86.0 Dehydration; I10 Essential (primary) hypertension; E78.5 Hyperlipidemia, unspecified; K21.9 Gastro-esophageal reflux disease without esophagitis; I25.10 Atherosclerotic heart disease of native coronary artery without angina pectoris; E83.39 Other disorders of phosphorus metabolism; S92.901A Unspecified fracture of right foot, initial encounter for closed fracture; X58.XXXA Exposure to other specified factors, initial encounter; E66.9 Obesity, unspecified; E78.00 Pure hypercholesterolemia, unspecified; E11.40 Type 2 diabetes mellitus with diabetic neuropathy, unspecified; Z95.5 Presence of coronary angioplasty implant and graft; I25.2 Old myocardial infarction; Z88.5 Allergy status to narcotic agent; Y93.89 Activity, other specified; Y92.89 Other specified places as the place of occurrence of the external cause; Y99.8 Other external cause status; Z68.29 Body mass index [BMI] 29.0-29.9, adult
CPT/HCPCS: 36415; 80048; 80053; 81001; 82805; 82962; 83036; 83690; 83735; 84100; 85007; 85025; 85027; G0378; J3480; J3490; J7510; Q0162; Q0177; Q9967; C9113; J1815; J2405; J7030; J7040; J7050